=== PATIENT | male | born 1930 | race Caucasian/White ===

== ENCOUNTER 2018-09-12 15:13 | Emergency (ER) | payer OTHER, BC ==
[2018-09-12 16:26] LABS: Albumin 3.7 g/dL (3.4-5.0); Bilirubin Direct 0.2 mg/dL (0-0.2); Bilirubin Total 0.9 mg/dL (0.2-1.0); Potassium 4.7 mmol/L (3.5-5.1); Protein, Total 6.9 g/dL (6.4-8.2)
[2018-09-12 16:28] LABS: Absolute Lymphocytes (CBC) 1.4 K/uL (0.7-4.9); Absolute Monocytes 0.8 K/uL (0.1-1.3); Basophils % 0.2 % (0-1.3); Eosinophils % 0.4 % (0-4.4); Hematocrit 39.3 % (39.6-49.0); MPV 9.1 fL (7.6-11.3); Monocytes % 9.2 % (3.3-12.3); RBC Red Blood Cell Count 4.21 M/uL (4.33-5.43)
[2018-09-12 16:47] LABS: Urine Blood 3+ (NEG); Urine Glucose NEGATIVE (NEG); Urine Protein 3+ (NEG); Urine Specific Gravity 1.025 (1.005-1.030); Urine pH 5.5 (5.0-7.0)
[2018-09-12 16:54] LABS: Urine Bacteria 20-50 /HPF (NONE SEEN); Urine Culture Reflex Order REFLEXED; Urine RBC LOADED /HPF (NONE SEEN)
--- NOTE | 2018-09-12 17:20 | RAD REPORT ---
EXAM DESCRIPTION: CTAbdomen Pelvis W Contrast - 09/12/2018 5:08 pm CLINICAL HISTORY: Abdominal pain. iv only;Hematuria COMPARISON: Abdomen Pelvis W Contrast dated 03/22/2017; CT ABD PELVIS W CONTRAST dated 10/09/2015 TECHNIQUE: Biphasic CT imaging of the abdomen and pelvis was performed with 100 ml non-ionic IV cont rast. All CT scans are performed using dose optimization technique as appropriate and may include automated exposure control or mA/KV adjustment according to patient size. FINDINGS: Emphysematous changes are present in both lung bases. 5.5 cm right-sided pericardial cyst noted. No aggressive liver lesion is seen. 14 mm cyst is present in the posterior inferior right lobe of the liver. The spleen appears absent. A splenule is present left upper quadrant. Both adrenal glands and pancreas appear unremarkable. Punctate bilateral nephrolithiasis is seen without hydronephrosis. Postsurgical changes are present in the inferior pelvis. 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 This soft tissue lesion measures approximat josie 2.4 cm. Left lower quadrant ostomy is present. No bowel obstruction or free air. No evidence of significant lymphadenopathy. 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 Prominent lumbosacral degenerative changes. IMPRESSION: Bilateral nephrolithiasis without hydronephrosis. No acute intra-abdominopelvic finding.
--- NOTE | 2018-09-12 17:50 | ER ---
Nurse's Notes [facility] Name: Cammie Mcclellan Age: 88 yrs Sex: Male : 1930 Arrival Date: 09/12/2018 Time: 15:16 Bed 26 Private MD: Diagnosis: Urinary tract infection, site not specified;Hematuria Presentation: 09/12 15:17 Presenting complaint: Patient states: i had blood in my urine and noticed it today, hx hj of prostate and colon cancer, denies fever and chills; denies nausea and vomiting; not been getting any current treatment for cancer;. Transition of care: patient was not received from another setting of care. Onset of symptoms was September 12, 2018. Risk Assessment: Do you want to hurt yourself or someone else? Patient reports no desire to harm self or others. Initial Sepsis Screen: Does the patient meet any 2 criteria? No. Patient's initial sepsis screen is negative. Does the patient have a suspected source of infection? No. Patient's initial sepsis screen is negative. Care prior to arrival: None. 15:17 Method Of Arrival: Ambulatory 15:17 Acuity: KYREE 3 hj Triage Assessment: 15:23 General: Appears in no apparent distress. uncomfortable, Behavior is calm, cooperative, hj appropriate for age. Pain:. Historical: - Allergies: 15:22 Codeine; hj 15:22 PENICILLINS; hj 15:22 Vicodin; hj - Home Meds: 15:22 ferrous sulfate 324 mg (65 mg iron) Oral TbEC [Active]; aspirin 81 mg Oral chew 1 tab hj once daily [Active]; Singulair 10 mg Oral tab 1 tab once daily [Active]; Zyrtec 10 mg Oral tab 1 tab once daily [Active]; respidone [Active]; Namenda 5 mg oral tab 2 tabs 2 times per day [Active]; - PMHx: 15:22 Currently on Chemotherapy; Hypertension; mesothelioma; Prostate Cancer; hj - PSHx: 15:22 prostate cancer sx; colon surgery; hj - Immunization history:: Adult Immunizations up to date. - Social history:: Smoking status: Patient/guardian denies using tobacco, Patient/guardian denies using alcohol. - Ebola Screening: : Patient negative for fever greater than or equal to 101.5 degrees Fahrenheit, and additional compatible Ebola Virus Disease symptoms Patient denies exposure to infectious person Patient denies travel to an Ebola-affected area in the 21 days before illness onset. Screenin:22 Abuse screen: Denies threats or abuse. Denies injuries from another. Nutritional hj screening: No deficits noted. Tuberculosis screening: No symptoms or risk factors identified. Fall Risk None identified. Assessment: 17:00 General: Appears in no apparent distress. comfortable, well groomed, well developed, tl3 well nourished, Behavior is calm, cooperative, appropriate for age. Pain: Denies pain. Neuro: Level of Consciousness is awake, alert, obeys commands, Oriented to person, place, time, situation, Appropriate for age. Cardiovascular: Patient's skin is warm and dry. Respiratory: Airway is patent Respiratory effort is even, unlabored, Respiratory pattern is regular, symmetrical. GI: No signs and/or symptoms were reported involving the gastrointestinal system. : straight cath. EENT: No signs and/or symptoms were reported regarding the EENT system. Derm: No signs and/or symptoms reported regarding the dermatologic system. Musculoskeletal: No deficits noted. Vital Signs: 15:23 BP 135 / 81; Pulse 86; Resp 18; Temp 99.4(O); Pulse Ox 99% on R/A; Weight 77.11 kg; Height 5 ft. 10 in. (177.80 cm); 17:00 BP 192 / 97; Pulse 88; Resp 16; Pulse Ox 100% on R/A; tl3 18:21 BP 199 / 97; Pulse 84; Resp 18; Pulse Ox 100% on R/A; tl3 15:23 Body Mass Index 24.39 (77.11 kg, 177.80 cm) ED Course: 15:16 Patient arrived in ED. mr 15:20 Triage completed. 15:23 Arm band placed on left wrist. 15:23 Patient has correct armband on for positive identification. Bed in low position. Call light in reach. Side rails up X 1. Adult w/ patient. 15:39 Villa Rodas PA is PHCP. jr8 15:39 Nilay Caputo MD is Attending Physician. jr8 15:55 Missed attempt(s): 20 gauge in left forearm. Bleeding controlled, band aid applied, jp3 catheter tip intact. 16:00 Initial lab(s) drawn, by me, sent to lab. jp3 16:00 Inserted saline lock: 22 gauge in left antecubital area, using aseptic technique. Blood jp3 collected. 16:07 Basic Metabolic Panel Sent. jp3 16:07 CBC with Diff Sent. jp3 16:07 Creatinine for Radiology Sent. jp3 16:07 Hepatic Function Sent. jp3 16:07 Urine Microscopic Only Sent. jp3 16:07 Urine Microscopic Only Sent. jp3 16:10 Urine collected: straight cath specimen, tea colored, blood tinged, Amount Returned: jp3 100mL. 16:50 Thelma Smith, RN is Primary Nurse. tl3 16:[address] via stretcher. tl3 17:00 No provider procedures requiring assistance completed. IV discontinued, intact, tl3 bleeding controlled, No redness/swelling at site. Pressure dressing applied. 17:08 CT Abd/Pelvis - W/Contrast In Process Unspecified. EDMS 17:08 CT completed. Patient tolerated procedure well. Patient moved back from [place]. fl 17:16 Urine Culture Sent. tl3 17:49 Erica Eagle MD is Referral Physician. jr8 Administered Medications: 18:04 Drug: Rocephin 1 grams {Note: IVP over 5 min.} Route: IV; Rate: calculated rate; Site: tl3 left antecubital; 18:04 Follow up: IV Status: Completed infusion; IV Intake: 20ml tl3 Intake: 18:04 IV: 20ml; Total: 20ml. tl3 Outcome: 17:00 Discharged to home via wheelchair. tl3 17:00 Condition: stable 17:00 Discharge instructions given to patient, family, Instructed on discharge instructions, follow up and referral plans. medication usage, Demonstrated understanding of instructions, follow-up care, medications, Prescriptions given X 1. 17:50 Discharge ordered by . jr8 18:20 Patient left the ED. tl3 Signatures: Dispatcher [employer] EDWV Sima Vazquez Villa Collins PA PA jr8 Justin Saleh RN RN hj Jordan, Nathan nj Lowrey, Tammy, RN RN tl3 Eren Luong jp3 Corrections: (The following items were deleted from the chart) 15:27 15:23 Pulse 86bpm; Resp 18bpm; Pulse Ox 99% RA; Temp 99.4F Oral; 77.11 kg; Height 5 ft. hj 10 in.; BMI: 24.3; hj 16:06 16:05 Inserted saline lock: 22 gauge in left antecubital area, using aseptic technique. jp3 Blood collected. jp3
--- NOTE | 2018-09-12 17:51 | EDPHYS ---
Physician Documentation [facility] Name: Cammie Mcclellan Age: 88 yrs Sex: Male : 1930 Arrival Date: 09/12/2018 Time: 15:16 Bed 26 Private MD: ED Physician Nilay Caputo HPI: 09/12 16:16 This 88 yrs old Male presents to ER via Ambulatory with complaints of Urinary jr8 Problem. 16:16 The patient presents with Hematuria . Onset: The symptoms/episode began/occurred jr8 acutely, today. Modifying factors: The symptoms are alleviated by nothing, the symptoms are aggravated by nothing. Associated signs and symptoms: The patient has no apparent associated signs or symptoms. Severity of symptoms: At their worst the symptoms were moderate, in the emergency department the symptoms have improved, mildly. The patient has not experienced similar symptoms in the past. The patient has not recently seen a physician. 16:16 Radical prostatectomy in the 80s from cancer . jr8 Historical: - Allergies: 15:22 Codeine; hj 15:22 PENICILLINS; hj 15:22 Vicodin; hj - Home Meds: 15:22 ferrous sulfate 324 mg (65 mg iron) Oral TbEC [Active]; aspirin 81 mg Oral chew 1 tab hj once daily [Active]; Singulair 10 mg Oral tab 1 tab once daily [Active]; Zyrtec 10 mg Oral tab 1 tab once daily [Active]; respidone [Active]; Namenda 5 mg oral tab 2 tabs 2 times per day [Active]; - PMHx: 15:22 Currently on Chemotherapy; Hypertension; mesothelioma; Prostate Cancer; hj - PSHx: 15:22 prostate cancer sx; colon surgery; hj - Immunization history:: Adult Immunizations up to date. - Social history:: Smoking status: Patient/guardian denies using tobacco, Patient/guardian denies using alcohol. - Ebola Screening: : Patient negative for fever greater than or equal to 101.5 degrees Fahrenheit, and additional compatible Ebola Virus Disease symptoms Patient denies exposure to infectious person Patient denies travel to an Ebola-affected area in the 21 days before illness onset. ROS: 16:16 Eyes: Negative for injury, pain, redness, and discharge, ENT: Negative for injury, jr8 pain, and discharge, Neck: Negative for injury, pain, and swelling, Cardiovascular: Negative for chest pain, palpitations, and edema, Respiratory: Negative for shortness of breath, cough, wheezing, and pleuritic chest pain, Abdomen/GI: Negative for abdominal pain, nausea, vomiting, diarrhea, and constipation, Back: Negative for injury and pain, MS/Extremity: Negative for injury and deformity, Skin: Negative for injury, rash, and discoloration, Neuro: Negative for headache, weakness, numbness, tingling, and seizure. 16:16 : Positive for hematuria, Negative for urinary frequency, small amounts, pelvic pain, flank pain, burning with urination, difficulty urinating, penile discharge, penile pain, testicular pain Exam: 16:16 Eyes: Pupils equal round and reactive to light, extra-ocular motions intact. Lids and jr8 lashes normal. Conjunctiva and sclera are non-icteric and not injected. Cornea within normal limits. Periorbital areas with no swelling, redness, or edema. ENT: Nares patent. No nasal discharge, no septal abnormalities noted. Tympanic membranes are normal and external auditory canals are clear. Oropharynx with no redness, swelling, or masses, exudates, or evidence of obstruction, uvula midline. Mucous membranes moist. Neck: Trachea midline, no thyromegaly or masses palpated, and no cervical lymphadenopathy. Supple, full range of motion without nuchal rigidity, or vertebral point tenderness. No Meningismus. Cardiovascular: Regular rate and rhythm with a normal S1 and S2. No gallops, murmurs, or rubs. Normal PMI, no JVD. No pulse deficits. Respiratory: Lungs have equal breath sounds bilaterally, clear to auscultation and percussion. No rales, rhonchi or wheezes noted. No increased work of breathing, no retractions or nasal flaring. Abdomen/GI: Soft, non-tender, with normal bowel sounds. No distension or tympany. No guarding or rebound. No evidence of tenderness throughout. Left sided colostomy bag and stoma noted and without acute or concerning findings Back: No spinal tenderness. No costovertebral tenderness. Full range of motion. Skin: Warm, dry with normal turgor. Normal color with no rashes, no lesions, and no evidence of cellulitis. MS/ Extremity: Pulses equal, no cyanosis. Neurovascular intact. Full, normal range of motion. Neuro: Awake and alert, GCS 15, oriented to person, place, time, and situation. Cranial nerves II-XII grossly intact. Motor strength 5/5 in all extremities. Sensory grossly intact. Cerebellar exam normal. Normal gait. Vital Signs: 15:23 BP 135 / 81; Pulse 86; Resp 18; Temp 99.4(O); Pulse Ox 99% on R/A; Weight 77.11 kg; hj Height 5 ft. 10 in. (177.80 cm); 17:00 BP 192 / 97; Pulse 88; Resp 16; Pulse Ox 100% on R/A; tl3 18:21 BP 199 / 97; Pulse 84; Resp 18; Pulse Ox 100% on R/A; tl3 15:23 Body Mass Index 24.39 (77.11 kg, 177.80 cm) hj MDM: 15:40 Patient medically screened. jr8 17:48 Data reviewed: vital signs, nurses notes, lab test result(s), radiologic studies, CT 8 scan. Data interpreted: Pulse oximetry: on room air is 99 %. Interpretation: normal. Counseling: I had a detailed discussion with the patient and/or guardian regarding: the historical points, exam findings, and any diagnostic results supporting the discharge/admit diagnosis, lab results, radiology results, the need for outpatient follow up, a urologist, to return to the emergency department if symptoms worsen or persist or if there are any questions or concerns that arise at home. ED course: Bacteria in urine present. Will treat with abx. Recommended him seeing Urology regardless for possible cystoscopy. Family good with this and will f/u with one after the weekend. If worse would come back . 09/12 15:26 Order name: Urine Microscopic Only 09/12 15:26 Order name: Urine Microscopic Only; Complete Time: 17:02 [facility] 09/12 15:40 Order name: Basic Metabolic Panel; Complete Time: 16:27 [facility] 09/12 15:40 Order name: CBC with Diff; Complete Time: 16:32 [facility] 09/12 15:40 Order name: Creatinine for Radiology; Complete Time: 16:27 [facility] 09/12 15:40 Order name: Hepatic Function; Complete Time: 16:27 [facility] 09/12 15:26 Order name: Urine Dipstick-Ancillary (obtain specimen); Complete Time: 16:07 09/12 15:40 Order name: IV Saline Lock; Complete Time: 16:06 [facility] 09/12 15:40 Order name: Labs collected and sent; Complete Time: 16:07 [facility] 09/12 16:03 Order name: Straight Cath - Urine; Complete Time: 16:32 [facility] 09/12 16:32 Order name: CT Abd/Pelvis - W/Contrast; Complete Time: 17:37 [facility] 09/12 16:33 Order name: Urine Dipstick--Ancillary (enter results); Complete Time: 17:02 09/12 16:56 Order name: Urine Culture EDMS Administered Medications: 18:04 Drug: Rocephin 1 grams {Note: IVP over 5 min.} Route: IV; Rate: calculated rate; Site: tl3 left antecubital; 18:04 Follow up: IV Status: Completed infusion; IV Intake: 20ml tl3 Disposition: 09/12/18 17:50 Discharged to Home. Impression: Urinary tract infection, site not specified, Hematuria. - Condition is Stable. - Discharge Instructions: Hematuria, Adult, Urinary Tract Infection, Adult. - Prescriptions for Cipro 500 mg Oral Tablet - take 1 tablet by ORAL route every 12 hours for 7 days; 14 tablet. - Medication Reconciliation Form, Thank You Letter, Antibiotic Education, Prescription Opioid Use form. - Follow up: Erica Eagle MD; When: 2 - 3 days; Reason: Recheck today's complaints, Continuance of care, Re-evaluation by your physician. - Problem is new. - Symptoms have improved. Signatures: Dispatcher [employer] EDIN Villa Rodas PA PA jr8 Justin Saleh RN RN Thelma Smith RN RN tl3 Corrections: (The following items were deleted from the chart) 18:20 17:50 09/12/2018 17:50 Discharged to Home. Impression: Urinary tract infection, site tl3 not specified; Hematuria. Condition is Stable. Forms are Medication Reconciliation Form, Thank You Letter, Antibiotic Education, Prescription Opioid Use. Follow up: Erica Eagle; When: 2 - 3 days; Reason: Recheck today's complaints, Continuance of care, Re-evaluation by your physician. Problem is new. Symptoms have improved. jr8
[2018-09-12] MEDS ORDERED: CEFTRIAXONE/SWI 1gm 1 GM/10 ML SYR ONE (18:06)
[2018-09-12 18:25] VITALS: TEMP 99.4
[2018-09-12 18:27] VITALS: BP 192/97; O2SAT 100
== END 2018-09-12 18:20 | disposition home or self-care (01) ==
LOC: ER 15:13
DX: N39.0 Urinary tract infection, site not specified (principal); I10 Essential (primary) hypertension; C45.9 Mesothelioma, unspecified; Z79.82 Long term (current) use of aspirin; Z88.0 Allergy status to penicillin; Z88.5 Allergy status to narcotic agent; Z85.46 Personal history of malignant neoplasm of prostate
CPT/HCPCS: 87088; 85025; 80048; 36415; 80076; 74177; 96374; 99284; Q9967; J0696; 81003; 81015; 87086

== ENCOUNTER 2018-11-29 03:12 | Emergency (ER) | payer OTHER, BC ==
[2018-11-29 04:26] LABS: Absolute Lymphocytes (CBC) 1.2 K/uL (0.7-4.9); Absolute Monocytes 0.9 K/uL (0.1-1.3); Absolute Neutrophil 10.7 K/uL (1.8-8.0); Basophils % 0.4 % (0-1.3); Eosinophils % 0.2 % (0-4.4); Hematocrit 39.2 % (39.6-49.0); Lymphocytes % 9.5 % (15.3-44.8); MPV 9.2 fL (7.6-11.3); RBC Red Blood Cell Count 4.23 M/uL (4.33-5.43)
[2018-11-29] MEDS ORDERED: HYDRALAZINE HCL 20 MG/ML VIAL ONE (04:34)
[2018-11-29] MEDS ORDERED: ACETAMINOPHEN 500 MG TAB ONE (04:35)
[2018-11-29 04:46] LABS: Albumin 3.8 g/dL (3.4-5.0); Bilirubin Total 0.6 mg/dL (0.2-1.0); Potassium 4.7 mmol/L (3.5-5.1); Protein, Total 7.3 g/dL (6.4-8.2)
[2018-11-29 05:07] LABS: Urine Amorphous Sediment 1+ /HPF (NONE SEEN); Urine Bacteria <20 /HPF (NONE SEEN); Urine Culture Reflex Order NOT NEEDED; Urine RBC TNTC /HPF (NONE SEEN)
--- NOTE | 2018-11-29 05:27 | ER ---
Nurse's Notes [facility] Name: Cammie Mcclellan Age: 88 yrs Sex: Male : 1930 Arrival Date: 11/29/2018 Time: 03:15 Bed 5 Private MD: Diagnosis: URINARY RETENTION Presentation: 11/29 03:34 Presenting complaint: pt c/o bladder and kidney pain starting at 0300. pt is ak1 incontinent but states he feels the need to urinate with no urine coming out. pt was seen "a few months ago" with same s/s. Transition of care: patient was not received from another setting of care. Onset of symptoms was November 29, 2018. Risk Assessment: Do you want to hurt yourself or someone else? Patient reports no desire to harm self or others. Care prior to arrival: None. 03:34 Method Of Arrival: Wheelchair ak1 03:34 Acuity: KYREE 3 ak1 04:14 Initial Sepsis Screen: Does the patient meet any 2 criteria? No. Patient's initial cc3 sepsis screen is negative. Does the patient have a suspected source of infection? No. Patient's initial sepsis screen is negative. Triage Assessment: 03:38 General: Appears in no apparent distress. Behavior is calm, cooperative. ak1 04:14 Pain: Complains of pain in lower abdomen and back. cc3 Historical: - Allergies: 03:38 Codeine; ak1 03:38 PENICILLINS; ak1 03:38 Vicodin; ak1 - Home Meds: 03:38 Namenda 5 mg Oral tab 2 tabs 2 times per day [Active]; aspirin 81 mg Oral chew 1 tab ak1 once daily [Active]; ferrous sulfate 324 mg (65 mg iron) Oral TbEC [Active]; respidone [Active]; Singulair 10 mg Oral tab 1 tab once daily [Active]; Zyrtec 10 mg Oral tab 1 tab once daily [Active]; - PMHx: 03:38 Prostate Cancer; mesothelioma; Hypertension; Currently on Chemotherapy; ak1 - PSHx: 03:38 colon surgery; prostate cancer sx; Colostomy; ak1 - Immunization history:: Adult Immunizations unknown. - Social history:: Smoking status: Patient/guardian denies using tobacco. - Ebola Screening: : No symptoms or risks identified at this time. Screenin:39 Abuse screen: Denies threats or abuse. Denies injuries from another. Nutritional ak1 screening: No deficits noted. Tuberculosis screening: No symptoms or risk factors identified. Fall Risk None identified. Assessment: 04:14 Reassessment: Patient appears in no apparent distress at this time. Patient and/or cc3 family updated on plan of care and expected duration. Pain level reassessed. Patient is alert, oriented x 3, equal unlabored respirations, skin warm/dry/pink. 05:50 Reassessment: Patient appears in no apparent distress at this time. Patient and/or cc3 family updated on plan of care and expected duration. Pain level reassessed. Patient is alert, oriented x 3, equal unlabored respirations, skin warm/dry/pink. Dr. Medina discharged the patient home, no prescription given. IV cannula removed and patient left ER vitally stable by wheelchair escorted by his daughter. Patient denies pain at this time. Patient states feeling better. Patient states symptoms have improved. Vital Signs: 03:33 BP 200 / 124; Pulse 95; Resp 18; Temp 97.6(TE); Pulse Ox 98% on R/A; Weight 86.18 kg ak1 (R); Height 6 ft. (182.88 cm) (R); Pain 6/10; 04:30 BP 182 / 94; Pulse 88; Resp 19 S; Pulse Ox 97% on R/A; cc3 05:00 BP 146 / 89; Pulse 86; Resp 18 S; Pulse Ox 98% on R/A; cc3 05:30 BP 146 / 91; Pulse 88; Resp 18 S; Pulse Ox 98% on R/A; cc3 03:33 Body Mass Index 25.77 (86.18 kg, 182.88 cm) ak1 ED Course: 03:15 Patient arrived in ED. mr 03:33 Jose De Jesus Medina MD is Attending Physician. tw4 03:33 Arm band placed on Patient placed in an exam room, on a stretcher, on pulse oximetry, ak1 Patient notified of wait time. 03:36 Triage completed. ak1 03:39 Patient has correct armband on for positive identification. Placed in gown. Bed in low ak1 position. Side rails up X2. Adult w/ patient. Pulse ox on. NIBP on. 03:40 Inserted saline lock: 20 gauge in right antecubital area, using aseptic technique. cc3 Blood collected. 04:14 Gretel Rhodes is Primary Nurse. cc3 04:50 Straight cath inserted, using sterile technique, 16 Fr. Specimen obtained. Returned ak1 sandra urine. Patient tolerated well. 05:50 No provider procedures requiring assistance completed. IV discontinued, intact, cc3 bleeding controlled, No redness/swelling at site. Pressure dressing applied. Administered Medications: 04:35 Drug: Tylenol 1000 mg Route: PO; cc3 05:30 Follow up: Response: No adverse reaction; Pain is decreased cc3 04:51 CANCELLED (Physician Discretion): hydrALAZINE 20 mg IV at bolus once cc3 Output: 04:51 Urine: 600ml (Straight Cath); Total: 600ml. ak1 Outcome: 05:26 Discharge ordered by . tw4 05:50 Discharged to home via wheelchair, with family. cc3 05:50 Condition: stable 05:50 Discharge instructions given to patient, family, Instructed on discharge instructions, follow up and referral plans. Demonstrated understanding of instructions, follow-up care. 05:51 Patient left the ED. cc3 Signatures: Sima Vazquez JoeSandra, RN RN ak1 Jose De Jesus Medina MD MD tw4 Gretel Rhodes cc3
--- NOTE | 2018-11-29 05:27 | EDPHYS ---
Physician Documentation [facility] Name: Cammie Mcclellan Age: 88 yrs Sex: Male : 1930 Arrival Date: 11/29/2018 Time: 03:15 Bed 5 Private MD: ED Physician Jose De Jesus Medina HPI: 11/29 05:42 This 88 yrs old Male presents to ER via Wheelchair with complaints of Urinary tw4 Problem. 05:42 The patient presents with urinary symptoms, retention, unable to void. Onset: The tw4 symptoms/episode began/occurred today. Modifying factors: The symptoms are alleviated by nothing, the symptoms are aggravated by nothing. Associated signs and symptoms: The patient has no apparent associated signs or symptoms. Severity of symptoms: At their worst the symptoms were moderate, in the emergency department the symptoms are unchanged. The patient has not experienced similar symptoms in the past. Historical: - Allergies: 03:38 Codeine; ak1 03:38 PENICILLINS; ak1 03:38 Vicodin; ak1 - Home Meds: 03:38 Namenda 5 mg Oral tab 2 tabs 2 times per day [Active]; aspirin 81 mg Oral chew 1 tab ak1 once daily [Active]; ferrous sulfate 324 mg (65 mg iron) Oral TbEC [Active]; respidone [Active]; Singulair 10 mg Oral tab 1 tab once daily [Active]; Zyrtec 10 mg Oral tab 1 tab once daily [Active]; - PMHx: 03:38 Prostate Cancer; mesothelioma; Hypertension; Currently on Chemotherapy; ak1 - PSHx: 03:38 colon surgery; prostate cancer sx; Colostomy; ak1 - Immunization history:: Adult Immunizations unknown. - Social history:: Smoking status: Patient/guardian denies using tobacco. - Ebola Screening: : No symptoms or risks identified at this time. ROS: 05:42 Constitutional: Negative for fever, chills, and weight loss, Eyes: Negative for injury, tw4 pain, redness, and discharge, Cardiovascular: Negative for chest pain, palpitations, and edema, Respiratory: Negative for shortness of breath, cough, wheezing, and pleuritic chest pain, Abdomen/GI: Negative for abdominal pain, nausea, vomiting, diarrhea, and constipation, Back: Negative for injury and pain. 05:42 : Positive for pelvic pain, urinary frequency, small amounts, difficulty urinating. Exam: 05:42 Constitutional: This is a well developed, well nourished patient who is awake, alert, tw4 and in no acute distress. Head/Face: Normocephalic, atraumatic. Chest/axilla: Normal chest wall appearance and motion. Nontender with no deformity. No lesions are appreciated. Cardiovascular: Regular rate and rhythm with a normal S1 and S2. No gallops, murmurs, or rubs. Normal PMI, no JVD. No pulse deficits. Respiratory: Lungs have equal breath sounds bilaterally, clear to auscultation and percussion. No rales, rhonchi or wheezes noted. No increased work of breathing, no retractions or nasal flaring. 05:42 Abdomen/GI: Inspection: abdomen appears normal, Bowel sounds: normal, Palpation: mild abdominal tenderness, in the suprapubic area. Vital Signs: 03:33 BP 200 / 124; Pulse 95; Resp 18; Temp 97.6(TE); Pulse Ox 98% on R/A; Weight 86.18 kg ak1 (R); Height 6 ft. (182.88 cm) (R); Pain 6/10; 04:30 BP 182 / 94; Pulse 88; Resp 19 S; Pulse Ox 97% on R/A; cc3 05:00 BP 146 / 89; Pulse 86; Resp 18 S; Pulse Ox 98% on R/A; cc3 05:30 BP 146 / 91; Pulse 88; Resp 18 S; Pulse Ox 98% on R/A; cc3 03:33 Body Mass Index 25.77 (86.18 kg, 182.88 cm) ak1 MDM: 03:33 Patient medically screened. tw4 05:42 Differential diagnosis: nonspecific abdominal pain, appendicitis, UTI. Data reviewed: tw4 vital signs, nurses notes. Counseling: I had a detailed discussion with the patient and/or guardian regarding: the historical points, exam findings, and any diagnostic results supporting the discharge/admit diagnosis. 05:42 Data interpreted: Pulse oximetry: Interpretation: normal. ED course: Pt's pain improved tw4 after Huerta catheter inserted with 600 cc of dark urine. 11/29 03:56 Order name: Urine Microscopic Only; Complete Time: 05:25 tw4 11/29 03:57 Order name: CMP [facility] 11/29 03:56 Order name: Urine Dipstick-Ancillary (obtain specimen); Complete Time: 04:50 4 11/29 03:57 Order name: CBC with Diff tw4 Administered Medications: 04:35 Drug: Tylenol 1000 mg Route: PO; cc3 05:30 Follow up: Response: No adverse reaction; Pain is decreased cc3 04:51 CANCELLED (Physician Discretion): hydrALAZINE 20 mg IV at bolus once cc3 Disposition: 11/29/18 05:26 Discharged to Home. Impression: URINARY RETENTION. - Condition is Stable. - Discharge Instructions: Acute Urinary Retention, Male, [id number]. - Medication Reconciliation Form, Thank You Letter, Antibiotic Education, Prescription Opioid Use form. - Follow up: Private Physician; When: Upon discharge from the Emergency Department; Reason: If symptoms return, Recheck today's complaints, Continuance of care. - Problem is new. - Symptoms have improved. Signatures: Dispatcher [employer] EDRadha Sanchez RN RN ak1 Jose De Jesus Medina MD MD tw4 Gretel Rhodes cc3 Corrections: (The following items were deleted from the chart) 04:51 03:56 hydrALAZINE 20 mg IV at bolus once ordered. 4 cc3 04:51 04:51 hydrALAZINE 20 mg IV at bolus once ordered. cc3 cc3 05:51 05:26 11/29/2018 05:26 Discharged to Home. Impression: URINARY RETENTION. Condition is cc3 Stable. Forms are Medication Reconciliation Form, Thank You Letter, Antibiotic Education, Prescription Opioid Use. Follow up: Private Physician; When: Upon discharge from the Emergency Department; Reason: If symptoms return, Recheck today's complaints, Continuance of care. Problem is new. Symptoms have improved. 4
[2018-11-29 06:31] VITALS: TEMP 97.6
[2018-11-29 06:33] VITALS: O2SAT 98
[2018-11-29 06:34] VITALS: BP 146/91
== END 2018-11-29 05:51 | disposition home or self-care (01) ==
LOC: ER 03:12
DX: R33.9 Retention of urine, unspecified (principal); C63.7 Malignant neoplasm of other specified male genital organs; C45.0 Mesothelioma of pleura; I10 Essential (primary) hypertension; Z79.82 Long term (current) use of aspirin; Z88.0 Allergy status to penicillin; Z88.5 Allergy status to narcotic agent
CPT/HCPCS: 36415; 51702; 80053; 81015; 85025; 99284; J0360

== ENCOUNTER 2018-11-30 20:32 | Emergency (ER) | payer OTHER, BC ==
[2018-11-30 23:04] LABS: Urine Amorphous Sediment 4+ /HPF (NONE SEEN); Urine Bacteria <20 /HPF (NONE SEEN); Urine Culture Reflex Order NOT NEEDED; Urine RBC 20-50 /HPF (NONE SEEN)
--- NOTE | 2018-11-30 23:55 | ER ---
Nurse's Notes [facility] Name: Cammie Mcclellan Age: 88 yrs Sex: Male : 1930 Arrival Date: 11/30/2018 Time: 20:34 Bed 17 Private MD: Diagnosis: Dysuria;Hematuria Presentation: 11/30 20:46 Presenting complaint: Patient states: abd pain, is feeling urgency but normally doesn't iw feel urgency, was seen here Saturday morning, had bladder drained, pt is passing urine today. Transition of care: patient was not received from another setting of care. Onset of symptoms was November 30, 2018. Risk Assessment: Do you want to hurt yourself or someone else? Patient reports no desire to harm self or others. Initial Sepsis Screen: Does the patient meet any 2 criteria? No. Patient's initial sepsis screen is negative. Does the patient have a suspected source of infection? No. Patient's initial sepsis screen is negative. Care prior to arrival: None. 20:46 Method Of Arrival: Wheelchair iw 20:46 Acuity: [id number] 3 iw Historical: - Allergies: 20:50 Codeine; iw 20:50 PENICILLINS; iw 20:50 Vicodin; iw - Home Meds: 20:50 aspirin 81 mg Oral chew 1 tab once daily [Active]; ferrous sulfate 324 mg (65 mg iron) iw Oral TbEC [Active]; Namenda 5 mg Oral tab 2 tabs 2 times per day [Active]; risperidone oral oral [Active]; Zyrtec 10 mg Oral tab 1 tab once daily [Active]; Singulair 10 mg Oral tab 1 tab once daily [Active]; - PMHx: 20:50 Currently on Chemotherapy; Hypertension; mesothelioma; Prostate Cancer; iw - PSHx: 20:50 colon surgery; prostate cancer sx; Colostomy; iw - Immunization history:: Adult Immunizations up to date. - Ebola Screening: : Patient negative for fever greater than or equal to 101.5 degrees Fahrenheit, and additional compatible Ebola Virus Disease symptoms Patient denies exposure to infectious person Patient denies travel to an Ebola-affected area in the 21 days before illness onset No symptoms or risks identified at this time. - Social history:: Smoking status: Patient/guardian denies using tobacco. Screenin:00 Abuse screen: Denies threats or abuse. Denies injuries from another. Nutritional ca1 screening: No deficits noted. Tuberculosis screening: No symptoms or risk factors identified. Fall Risk Secondary diagnosis (15 points) dementia. Assessment: 21:00 General: Appears in no apparent distress. comfortable, Behavior is calm, cooperative, ca1 appropriate for age. Pain: Complains of pain in suprapubic area Pain does not radiate. Pain currently is 2 out of 10 on a pain scale. at worst was 6 out of 10 on a pain scale. Pain began 1 day ago. Is intermittent. Neuro: Level of Consciousness is awake, alert, obeys commands, Oriented to person, place, time, situation. Cardiovascular: Heart tones S1 S2 present Capillary refill < 3 seconds Patient's skin is warm and dry. Respiratory: Airway is patent Respiratory effort is even, unlabored, Respiratory pattern is regular, symmetrical, Breath sounds are clear bilaterally. GI: Abdomen is flat, non-distended, Colostomy site is clean and dry. Ostomy appliance is intact. Bowel sounds present X 4 quads. Abd is soft and non tender X 4 quads. : Parent/caregiver report the patient having burning with urination since Saturday morning. urinary frequency urgency. EENT: No deficits noted. No signs and/or symptoms were reported regarding the EENT system. Derm: Skin is intact, is fragile. Musculoskeletal: Circulation, motion, and sensation intact. Capillary refill < 3 seconds. 21:40 Reassessment: Scanned bladder. Urine at 57ml in bladder. Notified Dr. Medina. VO to ca1 change order of Huerta to Straight Cath. 22:00 Reassessment: Patient appears in no apparent distress at this time. Patient and/or ca1 family updated on plan of care and expected duration. Pain level reassessed. Patient is alert, oriented x 3, equal unlabored respirations, skin warm/dry/pink. 23:00 Reassessment: Patient appears in no apparent distress at this time. Patient is alert, ca1 oriented x 3, equal unlabored respirations, skin warm/dry/pink. Family at bedside. Vital Signs: 20:48 BP 146 / 88; Pulse 86; Resp 16; Temp 97.8; Pulse Ox 98% ; Weight 65.77 kg; Height 5 ft. iw 6 in. (167.64 cm); Pain 0/10; 21:25 BP 156 / 89; Pulse 87; Resp 17 S; Temp 98; Pulse Ox 99% on R/A; ca1 22:00 BP 144 / 89; Pulse 80; Resp 18 S; Pulse Ox 99% on R/A; ca1 22:32 BP 168 / 87; Pulse 85; Resp 17 S; Temp 98.(O); Pulse Ox 100% on R/A; ca1 22:45 BP 146 / 81; Pulse 85; Resp 17 S; Pulse Ox 98% on R/A; ca1 23:15 BP 164 / 104; Pulse 82; Resp 18 S; Pulse Ox 98% on R/A; ca1 23:40 BP 148 / 91; Pulse 81; Resp 18; Pulse Ox 97% on R/A; lp1 20:48 Body Mass Index 23.40 (65.77 kg, 167.64 cm) iw ED Course: 20:34 Patient arrived in ED. es 20:48 Triage completed. iw 20:48 Arm band placed on. iw 20:55 Bhavna Britt, RN is Primary Nurse. ca1 21:00 Patient has correct armband on for positive identification. Placed in gown. Bed in low ca1 position. Call light in reach. Side rails up X2. Pulse ox on. NIBP on. Warm blanket given. 21:00 No provider procedures requiring assistance completed. ca1 21:12 Jose De Jesus Medina MD is Attending Physician. tw4 22:41 CT Stone Protocol In Process Unspecified. EDMS 23:46 Straight cath inserted, using sterile technique, 16 Fr. Specimen obtained. Returned ca1 clear yellow urine. Patient tolerated well. 23:59 Patient did not have IV access during this emergency room visit. lp1 Administered Medications: 23:54 Drug: Macrobid 100 mg Route: PO; lp1 12/01 00:01 Follow up: Response: Medication administered at discharge. lp1 Output: 11/30 22:32 Urine: 55ml (Straight Cath); Total: 55ml. ca1 Outcome: 23:54 Discharge ordered by . tw4 12/01 00:00 Discharged to home via wheelchair, with family. lp1 Condition: good Discharge instructions given to patient, family, Instructed on discharge instructions, follow up and referral plans. medication usage, Demonstrated understanding of instructions, follow-up care, medications, Prescriptions given X 1. 00:01 Patient left the ED. lp1 Signatures: Dispatcher [employer] EDMS [place], Megan es Florentino, Cindy, RN RN iw Neelam Sandoval RN RN lp1 Jose De Jesus Medina MD MD tw4 Bhavna Britt RN RN ca1 Corrections: (The following items were deleted from the chart) 11/30 23:49 23:30 BP 164 / 104; Pulse 82bpm; Resp 18bpm; Spontaneous; Pulse Ox 98%; ca1 ca1 23:55 23:30 BP 164 / 104; Pulse 82bpm; Resp 18bpm; Spontaneous; Pulse Ox 98% RA; ca1 ca1
--- NOTE | 2018-11-30 23:55 | EDPHYS ---
Physician Documentation [facility] Name: Cammie Mcclellan Age: 88 yrs Sex: Male : 1930 Arrival Date: 11/30/2018 Time: 20:34 Bed 17 Private MD: ED Physician Jose De Jesus Medina HPI: 12/01 05:04 This 88 yrs old Male presents to ER via Wheelchair with complaints of Urinary tw4 Retention, Abdominal Pain. 05:04 The patient presents with urinary symptoms, dysuria, retention, unable to void, tw4 HEMATURIA. Onset: The symptoms/episode began/occurred today. Modifying factors: The symptoms are alleviated by nothing, the symptoms are aggravated by nothing. Associated signs and symptoms: The patient has no apparent associated signs or symptoms. The patient has not experienced similar symptoms in the past. Historical: - Allergies: 11/30 20:50 Codeine; iw 20:50 PENICILLINS; iw 20:50 Vicodin; iw - Home Meds: 20:50 aspirin 81 mg Oral chew 1 tab once daily [Active]; ferrous sulfate 324 mg (65 mg iron) iw Oral TbEC [Active]; Namenda 5 mg Oral tab 2 tabs 2 times per day [Active]; risperidone oral oral [Active]; Zyrtec 10 mg Oral tab 1 tab once daily [Active]; Singulair 10 mg Oral tab 1 tab once daily [Active]; - PMHx: 20:50 Currently on Chemotherapy; Hypertension; mesothelioma; Prostate Cancer; iw - PSHx: 20:50 colon surgery; prostate cancer sx; Colostomy; iw - Immunization history:: Adult Immunizations up to date. - Ebola Screening: : Patient negative for fever greater than or equal to 101.5 degrees Fahrenheit, and additional compatible Ebola Virus Disease symptoms Patient denies exposure to infectious person Patient denies travel to an Ebola-affected area in the 21 days before illness onset No symptoms or risks identified at this time. - Social history:: Smoking status: Patient/guardian denies using tobacco. ROS: 12/01 05:04 Constitutional: Negative for fever, chills, and weight loss, Eyes: Negative for injury, tw4 pain, redness, and discharge, Cardiovascular: Negative for chest pain, palpitations, and edema, Respiratory: Negative for shortness of breath, cough, wheezing, and pleuritic chest pain, Abdomen/GI: Negative for abdominal pain, nausea, vomiting, diarrhea, and constipation, Back: Negative for injury and pain. : Positive for urinary symptoms, burning with urination, difficulty urinating, Negative for small amounts, bladder incontinence, foul smelling urine, penile pain, testicular pain Exam: 05:04 Constitutional: This is a well developed, well nourished patient who is awake, alert, tw4 and in no acute distress. Head/Face: Normocephalic, atraumatic. Chest/axilla: Normal chest wall appearance and motion. Nontender with no deformity. No lesions are appreciated. Cardiovascular: Regular rate and rhythm with a normal S1 and S2. No gallops, murmurs, or rubs. Normal PMI, no JVD. No pulse deficits. Respiratory: Lungs have equal breath sounds bilaterally, clear to auscultation and percussion. No rales, rhonchi or wheezes noted. No increased work of breathing, no retractions or nasal flaring. Abdomen/GI: Soft, non-tender, with normal bowel sounds. No distension or tympany. No guarding or rebound. No evidence of tenderness throughout. Male : Normal genitalia with no discharge or lesions. MS/ Extremity: Pulses equal, no cyanosis. Neurovascular intact. Full, normal range of motion. Neuro: Awake and alert, GCS 15, oriented to person, place, time, and situation. Cranial nerves II-XII grossly intact. Motor strength 5/5 in all extremities. Sensory grossly intact. Cerebellar exam normal. Normal gait. Vital Signs: 11/30 20:48 BP 146 / 88; Pulse 86; Resp 16; Temp 97.8; Pulse Ox 98% ; Weight 65.77 kg; Height 5 ft. iw 6 in. (167.64 cm); Pain 0/10; 21:25 BP 156 / 89; Pulse 87; Resp 17 S; Temp 98; Pulse Ox 99% on R/A; ca1 22:00 BP 144 / 89; Pulse 80; Resp 18 S; Pulse Ox 99% on R/A; ca1 22:32 BP 168 / 87; Pulse 85; Resp 17 S; Temp 98.(O); Pulse Ox 100% on R/A; ca1 22:45 BP 146 / 81; Pulse 85; Resp 17 S; Pulse Ox 98% on R/A; ca1 23:15 BP 164 / 104; Pulse 82; Resp 18 S; Pulse Ox 98% on R/A; ca1 23:40 BP 148 / 91; Pulse 81; Resp 18; Pulse Ox 97% on R/A; lp1 20:48 Body Mass Index 23.40 (65.77 kg, 167.64 cm) iw MDM: 21:12 Patient medically screened. tw4 12/01 05:04 Differential diagnosis: nonspecific abdominal pain. Data reviewed: vital signs, nurses tw4 notes. Data interpreted: Pulse oximetry: Interpretation: normal. Counseling: I had a detailed discussion with the patient and/or guardian regarding: the historical points, exam findings, and any diagnostic results supporting the discharge/admit diagnosis, lab results, radiology results. Special discussion: I discussed with the patient/guardian in detail that at this point there is no indication for admission to the hospital. It is understood, however, that if the symptoms persist or worsen the patient needs to return immediately for re-evaluation. Based on the history and exam findings, there is no indication for further emergent testing or inpatient evaluation. I discussed with the patient/guardian the need to see the urologist for further evaluation of the symptoms. ED course: Pt's initial bladder scan revealed only 57cc of urine in bladder. Pt was recently here in the ED with urinary retention . 11/30 21:53 Order name: Urine Microscopic Only; Complete Time: 23:17 [facility] 11/30 21:53 Order name: CT Stone Protocol [facility] 11/30 21:53 Order name: Urine Dipstick-Ancillary (obtain specimen); Complete Time: 22:32 [facility] 11/30 22:05 Order name: Straight Cath; Complete Time: 22:32 ca1 Administered Medications: 11/30 23:54 Drug: Macrobid 100 mg Route: PO; lp1 12/01 00:01 Follow up: Response: Medication administered at discharge. lp1 Disposition: 11/30/18 23:54 Discharged to Home. Impression: Dysuria, Hematuria. - Condition is Stable. - Discharge Instructions: Dysuria, Hematuria, Adult. - Prescriptions for Macrobid 100 mg Oral Capsule - take 1 capsule by ORAL route every 12 hours for 7 days; 14 capsule. - Medication Reconciliation Form, Thank You Letter, Antibiotic Education, Prescription Opioid Use form. - Follow up: Private Physician; When: Upon discharge from the Emergency Department; Reason: If symptoms return, Recheck today's complaints, Continuance of care. - Problem is new. - Symptoms have improved. Signatures: Dispatcher [employer] Cindy Hernandez, RN RN iw Neelam Sandoval RN RN lp1 Jose De Jesus Medina MD MD tw4 Bhavna Britt RN RN ca1 Corrections: (The following items were deleted from the chart) 11/30 22:05 21:23 Huerta ordered. tw4 ca1 12/01 00:01 11/30 23:54 11/30/2018 23:54 Discharged to Home. Impression: Dysuria; Hematuria. lp1 Condition is Stable. Forms are Medication Reconciliation Form, Thank You Letter, Antibiotic Education, Prescription Opioid Use. Follow up: Private Physician; When: Upon discharge from the Emergency Department; Reason: If symptoms return, Recheck today's complaints, Continuance of care. Problem is new. Symptoms have improved. tw4
[2018-12-01] MEDS ORDERED: NITROFURAN MACRO 100 MG CAP PO ONE (00:03)
[2018-12-01 01:29] VITALS: TEMP 98
[2018-12-01 01:47] VITALS: BP 148/91; O2SAT 97
--- NOTE | 2018-12-01 11:40 | RAD REPORT ---
EXAM DESCRIPTION: CT - Stone Protocol - 11/30/2018 10:41 pm CLINICAL HISTORY: 88 years Male dysuria TECHNIQUE: Contiguous axial images obtained through the abdomen and pelvis without IV contrast. Co yany and sagittal reformatted images provided. This CT exam was performed according to our departmental dose-optimization program, which includes on e or more of the following dose reduction techniques: automated exposure control, adjustment of the m A and/or kV according to patient size, and/or use of iterative reconstruction technique. COMPARISON: No prior exams provided for comparison. FINDINGS: There are single nonobstructing calculi in the upper poles of both kidneys, measuring up t o 3 mm on the left. No other renal, ureteral, or bladder calculi. There is no hydronephrosis or perin ephric stranding on either side. Prior prostatectomy, pelvic sidewall dissection, and distal colonic resection with a left periumbilic al ostomy. No visualized bowel inflammation, obstruction, pneumatosis, free intraperitoneal air, or ascites. Scarring and emphysematous changes at both lung bases 5 cm right pericardial cyst. Atherosclerosis wi th focal dilatation of the infrarenal abdominal aorta measuring up to 2.3 cm. No retroperitoneal hemo rrhage. Low-attenuation hepatic foci likely represent cysts. Prior splenectomy. The unenhanced biliary tree, gallbladder, and pancreas are normal. Likely benign thickening of the ad renal glands. Right inguinal lymphadenopathy with nodes measuring up to 1 cm in short axis. No other abdominal or p elvic lymphadenopathy. Chronic degenerative changes present throughout the spine and at both hips. No acute fracture. IMPRESSION: Nonobstructing intrarenal calculi bilaterally. No other urinary calculi. No urinary obst ruction. Extensive postsurgical changes including prior prostatectomy. There are enlarged right inguinal lymph nodes, raising concern for metastatic disease. 2.3 cm focal dilatation of the infrarenal abdominal aorta. Electronically signed by: Elisha Valentine MD 11/30/2018 10:51 PM CDT Due to temporary technical issues with the PACS/Fluency reporting system, reports are being signed by the in house radiologist as a courtesy to ensure prompt reporting. The interpreting radiologist is f ully responsible for the content of the report.
== END 2018-12-01 00:01 | disposition home or self-care (01) ==
LOC: ER 20:32
DX: C61 Malignant neoplasm of prostate (principal); R31.9 Hematuria, unspecified; I10 Essential (primary) hypertension; C45.9 Mesothelioma, unspecified; Z79.82 Long term (current) use of aspirin; Z88.0 Allergy status to penicillin; Z88.5 Allergy status to narcotic agent
CPT/HCPCS: 51702; 74176; 76377; 81015; 99284

== ENCOUNTER 2018-12-09 09:40 | Day surgery (SDC) | payer OTHER, BC ==
[2018-12-05 14:32] LABS: Potassium 4.7 mmol/L (3.5-5.1)
[2018-12-05 14:38] LABS: Absolute Lymphocytes (CBC) 1.4 K/uL (0.7-4.9); Absolute Monocytes 1.1 K/uL (0.1-1.3); Absolute Neutrophil 6.7 K/uL (1.8-8.0); Basophils % 0.4 % (0-1.3); Eosinophils % 0.3 % (0-4.4); Hematocrit 35.8 % (39.6-49.0); MPV 8.9 fL (7.6-11.3); Monocytes % 11.6 % (3.3-12.3); RBC Red Blood Cell Count 3.84 M/uL (4.33-5.43)
[2018-12-05 14:43] LABS: Protime INR 1.02
--- NOTE | 2018-12-05 14:54 | RAD REPORT ---
EXAM DESCRIPTION: RAD - Chest Pa And Lat (2 Views) - 12/05/2018 2:39 pm CLINICAL HISTORY: Preop chest, pending urinary bladder tumor removal COMPARISON: August 2016 TECHNIQUE: PA and lateral views of the chest were obtained. FINDINGS: The lungs are normal volume. Diaphragm is flattened with increased retrosternal space. Pat ient has a diffusely fibrotic lung pattern that matches prior imaging. An acute lung process is not s een. However, the extent of fibrotic change could mask the very earliest stages of an interstitial ed sae or infiltrate. No significant failure or volume overload. Heart size is normal and central vasculature is within normal limits. No pleural effusion or pneumot horax seen. No acute bony finding noted. No aortic abnormality. IMPRESSION: Prominent COPD changes not significantly different from comparison imaging. No acute fin ding confirmed.
[2018-12-05 15:05] LABS: Urine Appearance TURBID; Urine Blood 3+ (NEG); Urine Color RED; Urine Glucose NEGATIVE (NEG); Urine Protein 3+ (NEG); Urine Specific Gravity 1.025 (1.005-1.030)
[2018-12-05 15:12] LABS: Urine Bilirubin NEGATIVE (NEG)
[2018-12-05 15:18] LABS: Urine Bacteria 20-50 /HPF (NONE SEEN); Urine Culture Reflex Order REFLEXED; Urine RBC LOADED /HPF (NONE SEEN)
--- NOTE | 2018-12-05 16:43 | EKG ---
Test Date: 2018-12-05 Test Time: 14:06:44 Multi Purpose Machine Operator: JESUS MEASUREMENT RESULTS: Intervals: Rate: 91 DC: 168 QRSD: 112 QT: 396 QTc: 487 Weed: P: 67 DC: 168 QRS: -79 T: 36 INTERPRETIVE STATEMENTS: Sinus rhythm with marked sinus arrhythmia Left axis deviation Prolonged QT Abnormal ECG Compared to ECG 09/11/2016 14:46:44 Prolonged QT interval now present Atrial premature complex(es) no longer present Right bundle-branch block no longer present Electronically Signed On 12-05-18 16:42:30 CDT by Bartolome Cardona
[2018-12-09] MEDS ORDERED: Ringers Lactate 1,000 ML IV ONE (09:59)
[2018-12-09] MEDS ORDERED: GENTAMICIN 80 MG/100 ML BAG 80 MG/100 ML BAG IV ONE (09:59)
[2018-12-09] MEDS ORDERED: PROPOFOL 200 MG/20 ML VIAL IV ONE ×2 (10:49→11:17)
[2018-12-09] MEDS ORDERED: FENTANYL CITR 100 MCG/2 ML ONE (10:50)
[2018-12-09] MEDS ORDERED: LIDOCAINE 1% MPF 5 ML VIAL ONE (10:53)
[2018-12-09 13:23] VITALS: BP 176/86; TEMP 98.2; O2SAT 99
--- NOTE | 2018-12-09 15:09 | RAD REPORT ---
EXAM DESCRIPTION: CT - Abdomen Pelvis W Contrast - 12/09/2018 2:56 pm CLINICAL HISTORY: Prostate and bladder carcinoma COMPARISON: September 2018, March 2017 TECHNIQUE: Biphasic, helical CT imaging of the abdomen and pelvis was performed following 100 ml non -ionic IV contrast. Oral contrast was given. All CT scans are performed using dose optimization technique as appropriate and may include automated exposure control or mA/KV adjustment according to patient size. FINDINGS: Minimal right pleural effusion is present. There is partial atelectasis in each posterior gutter. Cardiac silhouette is prominent. No pericardial effusion. A 4.7 centimeter right-side pericar dial cyst is present not clearly different from comparison. In the inferior right lobe of the liver a 15 millimeter oval low-density mass is present stable back to 2016. This is most likely a cyst. No suspicious liver lesions seen. Spleen is absent. A small acce ssory splenic nodule is present near the pancreatic tail. No acute pancreatic process seen. Gallbladd er and biliary tree are also without suspicious finding. Gallstones can be occult on CT imaging. Symmetric renal function is seen with no hydronephrosis or suspicious renal mass. No pyelonephritis o r acute parenchymal process. Punctate calcifications seen upper pole left kidney and upper pole right kidney. Small 8 mm cyst posterior margin of the right kidney. Urinary bladder is contracted around a Huerta catheter limiting assessment. Numerous surgical clips are present in the floor the pelvis. Prostate gland has been resected. Strand ing is present in the fatty tissues. This could be postsurgical scarring. No new or enlarging mass. N o adrenal abnormalities. No dilated bowel loops or bowel wall thickening. Moderate stool volume present throughout the colon. No free air, free fluid or inflammatory stranding. Left abdomen colostomy site shows no suspicious f inding. No free air or free fluid. In the superior right inguinal canal there are 2 lymph nodes present. Largest lymph node is 22 x 12 m m. An adjacent lymph node is 14 mm in diameter. The smaller lymph node is stable. The larger lymph no de is new from September. IMPRESSION: Urinary bladder is contracted around a Huerta catheter. Prostatectomy surgical changes ar e noted. Scarring changes are present. No new or enlarging mass along the pelvic floor. A new 22 x 15 millimeter right inguinal lymph node is present. An adjacent 15 millimeter lymph node i s stable from September. No pelvic floor or aortoiliac chain new lymphadenopathy. Minimal right pleural effusion with bilateral lung base atelectasis and right pericardial cyst are st able.
== END 2018-12-09 15:00 | disposition home or self-care (01) ==
LOC: OR 09:40
PROVIDERS: ATTEND Urology
PROC: 0TBB8ZX Excision of Bladder, Via Natural or Artificial Opening Endoscopic, Diagnostic (ICD-10-PCS; principal; 2018-12-09 11:00)
DX: C67.5 Malignant neoplasm of bladder neck (principal); F03.90 Unspecified dementia, unspecified severity, without behavioral disturbance, psychotic disturbance, mood disturbance, and anxiety; Z85.46 Personal history of malignant neoplasm of prostate; Z85.048 Personal history of other malignant neoplasm of rectum, rectosigmoid junction, and anus; Z79.82 Long term (current) use of aspirin; Z88.6 Allergy status to analgesic agent; Z88.0 Allergy status to penicillin; Z87.891 Personal history of nicotine dependence; Z90.81 Acquired absence of spleen
CPT/HCPCS: 93005; 87088; 85025; 81001; 80048; 36415; 86900; 86850; 85610; 86901; 88305; 85730; 74177; 71046; 52235; Q9967; J2704 ×2; J3010; J1580; 87086

== ENCOUNTER 2018-12-15 09:38 | Inpatient (IN) | payer OTHER, BC ==
[2018-12-15] MEDS ORDERED: NA CHLORIDE 0.9% 1,000 ML ONE (10:26)
--- NOTE | 2018-12-15 10:42 | RAD REPORT ---
EXAM DESCRIPTION: Karla Single View12/15/2018 10:30 am CLINICAL HISTORY: Chest pain COMPARISON: November 2018 FINDINGS: Lungs are hyperaerated consistent with COPD. Right cardiophrenic opacity unchanged previou sly shown to represent a pericardial cyst The lungs appear clear of acute infiltrate. The heart is normal size IMPRESSION: No acute abnormalities displayed
--- NOTE | 2018-12-15 10:44 | RAD REPORT ---
EXAM DESCRIPTION: CT - Head Brain Wo Cont - 12/15/2018 10:35 am CLINICAL HISTORY: Alteration of awareness/confusion COMPARISON: None TECHNIQUE: Computed axial tomography of the head was obtained. IV contrast was not requested. All CT scans are performed using dose optimization technique as appropriate and may include automated exposure control or mA/KV adjustment according to patient size. FINDINGS: An intracranial bleed is not seen . The ventricles are normal in caliber. No extra-axial fluid collection is noted. Moderate low-density areas within periventricular, deep and subcortical white matter likely represent ischemic changes secondary to small vessel disease. Opacification of the left mastoids IMPRESSION: No acute intracranial abnormality is seen. If patient's symptoms persist MRI of the bra in would be recommended. Opacification left mastoids may indicate mastoiditis
[2018-12-15 10:57] LABS: Absolute Lymphocytes (CBC) 0.8 K/uL (0.7-4.9); Absolute Monocytes 0.9 K/uL (0.1-1.3); Absolute Neutrophil 8.2 K/uL (1.8-8.0); Basophils % 0.5 % (0-1.3); Hematocrit 37.8 % (39.6-49.0); Lymphocytes % 7.9 % (15.3-44.8); MPV 8.7 fL (7.6-11.3); Monocytes % 8.7 % (3.3-12.3); RBC Red Blood Cell Count 4.13 M/uL (4.33-5.43)
[2018-12-15 10:59] LABS: Protime INR 1.11
[2018-12-15 11:15] LABS: ALT/SGPT 16 U/L (12-78); AST/SGOT 15 U/L (15-37); Albumin 3.1 g/dL (3.4-5.0); Alkaline Phosphatase 131 U/L (45-117); BUN Blood Urea Nitrogen 19 mg/dL (7-18); Bicarbonate 27 mmol/L (21-32); Bilirubin Direct 0.2 mg/dL (0-0.2); Bilirubin Total 0.7 mg/dL (0.2-1.0); Creatine Phosphokinase 40 U/L (39-308); Glucose Level 90 mg/dL (74-106); Lipase 96 U/L (73-393); Protein, Total 6.9 g/dL (6.4-8.2); Sodium Level 143 mmol/L (136-145); Troponin (Emerg Dept Use Only) < 0.02 ng/mL (0.0-0.045)
[2018-12-15 11:23] LABS: Urine Bacteria 20-50 /HPF (NONE SEEN); Urine Culture Reflex Order REFLEXED; Urine RBC >50 /HPF (NONE SEEN)
[2018-12-15 11:56] LABS: Urine Blood 3+ (NEG); Urine Glucose NEGATIVE (NEG); Urine Protein 2+ (NEG); Urine Specific Gravity 1.015 (1.005-1.030); Urine pH 6.5 (5.0-7.0)
[2018-12-15] MEDS ORDERED: CEFTRIAXONE/SWI 1gm 1 GM/10 ML SYR ONE (13:26)
[2018-12-15] MEDS ORDERED: ENALAPRILAT 1.25 MG/ML VIAL IV ONE (13:37)
--- NOTE | 2018-12-15 14:18 | ER ---
Nurse's Notes [facility] Name: Cammie Mcclellan Age: 88 yrs Sex: Male : 1930 Arrival Date: 12/15/2018 Time: 09:42 Bed 14 Private MD: Diagnosis: Altered mental status, unspecified;Cystitis Presentation: 12/15 09:51 Presenting complaint: Child states: per daughter, he had a procedure at the urologist clinic Saturday and had a caputo inserted after that; recently we noticed he is weak in fact today he was able to walk, today, he doesn't know my name, and he hasnt slept for a while and lost his appetite; denies fever and chills; denies any pain; on triage, pt is A\T\O x 4;. Transition of care: patient was not received from another setting of care. Onset of symptoms was December 15, 2018. Risk Assessment: Do you want to hurt yourself or someone else? Patient reports no desire to harm self or others. Initial Sepsis Screen: Does the patient meet any 2 criteria? No. Patient's initial sepsis screen is negative. Does the patient have a suspected source of infection? No. Patient's initial sepsis screen is negative. Care prior to arrival: None. 09:51 Method Of Arrival: Wheelchair 09:51 Acuity: KYREE 3 Triage Assessment: 09:57 General: Appears in no apparent distress. uncomfortable, Behavior is calm, cooperative, hj appropriate for age. Pain: Denies pain. Neuro: Level of Consciousness is awake, alert, obeys commands, Oriented to person, place, time, situation, Appropriate for age. Historical: - Allergies: 09:57 Codeine; 09:57 PENICILLINS; 09:57 Vicodin; hj - Home Meds: 09:57 aspirin 81 mg Oral chew 1 tab once daily [Active]; ferrous sulfate 324 mg (65 mg iron) Oral TbEC [Active]; Namenda 5 mg Oral tab 2 tabs 2 times per day [Active]; respidone [Active]; risperidone Oral [Active]; Singulair 10 mg Oral tab 1 tab once daily [Active]; Zyrtec 10 mg Oral tab 1 tab once daily [Active]; - PMHx: 09:57 Currently on Chemotherapy; Hypertension; mesothelioma; Prostate Cancer; hj - PSHx: 09:57 colon surgery; prostate cancer sx; Colostomy; hj - Immunization history:: Adult Immunizations up to date. - Social history:: Smoking status: Patient/guardian denies using tobacco, Patient/guardian denies using alcohol. - Ebola Screening: : Patient negative for fever greater than or equal to 101.5 degrees Fahrenheit, and additional compatible Ebola Virus Disease symptoms Patient denies exposure to infectious person Patient denies travel to an Ebola-affected area in the 21 days before illness onset. Screenin:57 Abuse screen: Denies threats or abuse. Denies injuries from another. Nutritional hj screening: No deficits noted. Tuberculosis screening: No symptoms or risk factors identified. Fall Risk Secondary diagnosis (15 points). Assessment: 09:58 General: Appears in no apparent distress. uncomfortable, Behavior is calm, cooperative, hj appropriate for age. Pain: Denies pain. Neuro: Level of Consciousness is awake, alert, obeys commands, Oriented to person, place, time, situation, Appropriate for age. Cardiovascular: Capillary refill < 3 seconds Patient's skin is warm and dry. Respiratory: Airway is patent Respiratory effort is even, unlabored, Respiratory pattern is regular, symmetrical. GI: No signs and/or symptoms were reported involving the gastrointestinal system. : No signs and/or symptoms were reported regarding the genitourinary system. EENT: No signs and/or symptoms were reported regarding the EENT system. Derm: No signs and/or symptoms reported regarding the dermatologic system. Musculoskeletal: No signs and/or symptoms reported regarding the musculoskeletal system. 10:01 Reassessment: HR drops from 80's to low 40's and upper 30's; to inform MD;. hj 11:46 Reassessment: Patient is lying in bed resting with family at bedside. ae4 12:07 Reassessment: Provider notified of elevated blood pressure. ae4 Vital Signs: 09:54 BP 149 / 91; Pulse 79; Resp 18; Temp 98.5(O); Pulse Ox 96% on R/A; Weight 65.77 kg; hj Height 5 ft. 7 in. (170.18 cm); Pain 0/10; 10:01 BP 144 / 58; Pulse 80; Resp 18; Pulse Ox 98% on R/A; hj 12:04 BP 200 / 90 RA (man/reg); Pulse 88; Resp 16; Pulse Ox 100% on R/A; ae4 12:36 BP 197 / 110; Pulse 88; Resp 14; Pulse Ox 100% on R/A; ae4 13:00 BP 201 / 106 LA; Pulse 87; Resp 15 S; Temp 97.6(O); Pulse Ox 100% on R/A; ae4 13:17 BP 205 / 94; Pulse 83; Resp 17; Pulse Ox 99% on R/A; ae4 13:43 BP 194 / 95; Pulse 88; Resp 14; Pulse Ox 99% on R/A; ae4 14:05 BP 163 / 100; Pulse 96; Resp 16; Pulse Ox 96% on R/A; ae4 14:50 BP 177 / 84; Pulse 93; Resp 22; Pulse Ox 95% on R/A; ae4 15:47 BP 162 / 99; Pulse 72; Resp 15; Pulse Ox 95% on R/A; ae4 16:14 BP 148 / 100; Pulse 95; Resp 16; Pulse Ox 95% on R/A; ae4 09:54 Body Mass Index 22.71 (65.77 kg, 170.18 cm) hj ED Course: 09:42 Patient arrived in ED. rg4 09:49 Lisandro Harvey MD is Attending Physician. gs 09:51 Justin Saleh, JUVENTINO is Primary Nurse. hj 09:54 Triage completed. hj 09:58 Arm band placed on right wrist. hj 09:58 Patient has correct armband on for positive identification. Placed in gown. Bed in low hj position. Call light in reach. Side rails up X2. Adult w/ patient. 10:06 EKG done, by central sterile supply technician. reviewed by Lisandro Harvey MD. at1 10:15 First set of blood cultures drawn by me. jb1 10:18 Urine collected: Caputo catheter specimen, clear. hj 10:22 X-ray completed. Portable x-ray completed in exam room. Patient tolerated procedure sw well. 10:25 CT Head Brain wo Cont In Process Unspecified. EDMS 10:30 Second set of blood cultures drawn by me. jb1 10:32 Chest Single View XRAY In Process Unspecified. EDMS 10:36 Inserted saline lock: 22 gauge in left antecubital area, using aseptic technique. Blood jb1 collected. 10:36 Initial lab(s) drawn, by ma, sent to lab. jb1 11:30 Kendrick Herrera, RN is Primary Nurse. ae4 14:17 Faith Lebron MD is Hospitalizing Provider. gs 16:58 Repeat EKG was done. sm3 17:21 No provider procedures requiring assistance completed. Patient admitted, IV remains in ae4 place. Administered Medications: 10:30 Drug: NS 0.9% 1000 ml Route: IV; Rate: 1 bolus; Site: left antecubital; hj 17:22 Follow up: IV Status: Completed infusion ae4 13:24 Drug: Rocephin - (cefTRIAXone) 1 grams Route: IVPB; Infused Over: 30 mins; Site: left ae4 antecubital; 17:23 Follow up: IV Status: Completed infusion ae4 13:29 Drug: Enalaprilat 0.625 mg Route: IV; Rate: calculated rate; Site: left antecubital; ae4 13:44 Follow up: Response: Blood pressure is lowered; IV Status: Completed infusion ae4 Point of Care Testing: Blood Glucose: 10:22 Blood Glucose: 101 mg/dL; hj Ranges: Outcome: 14:17 Decision to Hospitalize by Provider. 17:21 Admitted to Med/surg accompanied by tech, family with patient, via stretcher, room 401, ae4 with chart, Report called to Agustín receiving nurse. 17:21 Condition: stable 17:21 Discharge instructions given to family, Instructed on the need for admit, Demonstrated understanding of instructions. 17:23 Patient left the ED. ae4 Signatures: Dispatcher [employer] EDMS Brayden Mcclure jb1 Tita Stewart, hammer smith EKG Tat1 Anika Benson Henry, RN RN Natalie French 4 Lisandro Harvey MD MD Felipa Bell 3 Kendrick Herrera, RN RN ae4
--- NOTE | 2018-12-15 14:18 | EDPHYS ---
Physician Documentation [facility] Name: Cammie Mcclellan Age: 88 yrs Sex: Male : 1930 Arrival Date: 12/15/2018 Time: 09:42 Bed 14 Private MD: ED Physician Lisandro Harvey HPI: 12/15 15:09 This 88 yrs old Male presents to ER via Wheelchair with complaints of Altered gs Mental Status, Decreased Appetite. 15:09 Onset: The symptoms/episode began/occurred 3 day(s) ago. Possible causes: sepsis, the gs patient has a known UTI history, dx uti catherter placed bladder outlet obstruction. Associated signs and symptoms: Pertinent positives: confusion, Pertinent negatives: seizure. The patient has experienced similar episodes in the past, a few times. Historical: - Allergies: 09:57 Codeine; hj 09:57 PENICILLINS; hj 09:57 Vicodin; hj - Home Meds: 09:57 aspirin 81 mg Oral chew 1 tab once daily [Active]; ferrous sulfate 324 mg (65 mg iron) hj Oral TbEC [Active]; Namenda 5 mg Oral tab 2 tabs 2 times per day [Active]; respidone [Active]; risperidone Oral [Active]; Singulair 10 mg Oral tab 1 tab once daily [Active]; Zyrtec 10 mg Oral tab 1 tab once daily [Active]; - PMHx: 09:57 Currently on Chemotherapy; Hypertension; mesothelioma; Prostate Cancer; hj - PSHx: 09:57 colon surgery; prostate cancer sx; Colostomy; hj - Immunization history:: Adult Immunizations up to date. - Social history:: Smoking status: Patient/guardian denies using tobacco, Patient/guardian denies using alcohol. - Ebola Screening: : Patient negative for fever greater than or equal to 101.5 degrees Fahrenheit, and additional compatible Ebola Virus Disease symptoms Patient denies exposure to infectious person Patient denies travel to an Ebola-affected area in the 21 days before illness onset. ROS: 15:09 Unable to obtain ROS due to baseline dementia. gs Exam: 15:09 Head/Face: Normocephalic, atraumatic. Eyes: Pupils equal round and reactive to light, gs extra-ocular motions intact. Lids and lashes normal. Conjunctiva and sclera are non-icteric and not injected. Cornea within normal limits. Periorbital areas with no swelling, redness, or edema. ENT: Nares patent. No nasal discharge, no septal abnormalities noted. Tympanic membranes are normal and external auditory canals are clear. Oropharynx with no redness, swelling, or masses, exudates, or evidence of obstruction, uvula midline. Mucous membranes moist. Neck: Trachea midline, no thyromegaly or masses palpated, and no cervical lymphadenopathy. Supple, full range of motion without nuchal rigidity, or vertebral point tenderness. No Meningismus. Chest/axilla: Normal chest wall appearance and motion. Nontender with no deformity. No lesions are appreciated. 15:09 Abdomen/GI: Soft, non-tender, with normal bowel sounds. No distension or tympany. No guarding or rebound. No evidence of tenderness throughout. Back: No spinal tenderness. No costovertebral tenderness. Full range of motion. Skin: Warm, dry with normal turgor. Normal color with no rashes, no lesions, and no evidence of cellulitis. MS/ Extremity: Pulses equal, no cyanosis. Neurovascular intact. Full, normal range of motion. 15:09 Constitutional: The patient appears awake, lethargic. 15:09 Cardiovascular: Rate: normal, Rhythm: regular, Pulses: no pulse deficits are appreciated. 15:09 ECG was reviewed by the Attending Physician. 15:09 Respiratory: the patient does not display signs of respiratory distress. 15:09 Neuro: Orientation: to person, Cranial nerves: no acute changes, Motor: moves all fours, Sensation: no acute changes. 15:09 Neuro: Orientation: confused. Vital Signs: 09:54 BP 149 / 91; Pulse 79; Resp 18; Temp 98.5(O); Pulse Ox 96% on R/A; Weight 65.77 kg; hj Height 5 ft. 7 in. (170.18 cm); Pain 0/10; 10:01 BP 144 / 58; Pulse 80; Resp 18; Pulse Ox 98% on R/A; hj 12:04 BP 200 / 90 RA (man/reg); Pulse 88; Resp 16; Pulse Ox 100% on R/A; ae4 12:36 BP 197 / 110; Pulse 88; Resp 14; Pulse Ox 100% on R/A; ae4 13:00 BP 201 / 106 LA; Pulse 87; Resp 15 S; Temp 97.6(O); Pulse Ox 100% on R/A; ae4 13:17 BP 205 / 94; Pulse 83; Resp 17; Pulse Ox 99% on R/A; ae4 13:43 BP 194 / 95; Pulse 88; Resp 14; Pulse Ox 99% on R/A; ae4 14:05 BP 163 / 100; Pulse 96; Resp 16; Pulse Ox 96% on R/A; ae4 14:50 BP 177 / 84; Pulse 93; Resp 22; Pulse Ox 95% on R/A; ae4 15:47 BP 162 / 99; Pulse 72; Resp 15; Pulse Ox 95% on R/A; ae4 16:14 BP 148 / 100; Pulse 95; Resp 16; Pulse Ox 95% on R/A; ae4 09:54 Body Mass Index 22.71 (65.77 kg, 170.18 cm) hj MDM: 10:07 Patient medically screened. 15:09 Differential Diagnosis: electrolyte abnormality, hypoglycemia, intracranial bleed, gs sepsis. Data reviewed: vital signs, nurses notes, old medical records, lab test result(s), EKG, radiologic studies. Counseling: I had a detailed discussion with the patient and/or guardian regarding: the historical points, exam findings, and any diagnostic results supporting the discharge/admit diagnosis, the need for further work-up and treatment in the hospital. Response to treatment: the patient's symptoms have markedly improved after treatment, and as a result, I will admit patient. 12/15 10:07 Order name: Basic Metabolic Panel; Complete Time: 12:39 12/15 10:07 Order name: Blood Culture Adult (2) 12/15 10:07 Order name: CBC with Diff; Complete Time: 12:39 12/15 10:07 Order name: CPK; Complete Time: 12:39 12/15 10:07 Order name: Lactate; Complete Time: 12:39 12/15 10:07 Order name: LFT's; Complete Time: 12:39 12/15 10:07 Order name: Lipase; Complete Time: 12:39 12/15 10:07 Order name: Procalcitonin; Complete Time: 12:39 12/15 10:07 Order name: Protime (+inr); Complete Time: 12:39 12/15 10:07 Order name: Troponin (emerg Dept Use Only); Complete Time: 12:39 gs 12/15 10:07 Order name: Urine Microscopic Only; Complete Time: 12:39 gs 12/15 10:07 Order name: Chest Single View XRAY; Complete Time: 10:51 gs 12/15 11:38 Order name: Urine Dipstick--Ancillary (enter results) bd 12/15 11:58 Order name: Urine Dipstick-Ancillary; Complete Time: 12:39 EDMS 12/15 10:07 Order name: Accucheck; Complete Time: 10:22 gs 12/15 10:07 Order name: Cardiac monitoring; Complete Time: 10:08 gs 12/15 10:07 Order name: EKG - Nurse/Tech; Complete Time: 10:08 gs 12/15 10:07 Order name: IV Saline Lock - Large Bore; Complete Time: 10:36 gs 12/15 10:07 Order name: Labs collected and sent; Complete Time: 10:37 gs 12/15 10:07 Order name: O2 Per Protocol; Complete Time: 10:09 gs 12/15 10:07 Order name: O2 Sat Monitoring; Complete Time: 10:09 gs 12/15 10:07 Order name: Urine Dipstick-Ancillary (obtain specimen); Complete Time: 10:17 gs 12/15 10:08 Order name: CT Head Brain wo Cont; Complete Time: 10:51 gs EC:09 Rate is 90 beats/min. Rhythm is regular. KY interval is normal. QRS interval is gs prolonged. T waves are Inverted. Clinical impression: NSR w/ Non-specific ST/T Changes. Interpreted by me. Administered Medications: 10:30 Drug: NS 0.9% 1000 ml Route: IV; Rate: 1 bolus; Site: left antecubital; hj 17:22 Follow up: IV Status: Completed infusion ae4 13:24 Drug: Rocephin - (cefTRIAXone) 1 grams Route: IVPB; Infused Over: 30 mins; Site: left ae4 antecubital; 17:23 Follow up: IV Status: Completed infusion ae4 13:29 Drug: Enalaprilat 0.625 mg Route: IV; Rate: calculated rate; Site: left antecubital; ae4 13:44 Follow up: Response: Blood pressure is lowered; IV Status: Completed infusion ae4 Point of Care Testing: Blood Glucose: 10:22 Blood Glucose: 101 mg/dL; hj Ranges: Critical Glucose Levels:Adult <50 mg/dl or >400 mg/dl <40 mg/dl or >180 mg/dl Disposition: 12/15/18 14:17 Hospitalization ordered by Faith Lebrno for Inpatient Admission. Preliminary diagnosis are Altered mental status, unspecified, Cystitis. - Bed requested for Telemetry/MedSurg (Inpatient). - Status is Inpatient Admission. ae4 - Condition is Stable. - Problem is new. - Symptoms have improved. UTI on Admission? Yes Signatures: Dispatcher [employer] EDMS Radha Bermudez Henry, RN RN Lisandro Harvey MD MD Kendrick Herrera RN RN ae4 Corrections: (The following items were deleted from the chart) 16:35 14:17 Hospitalization Ordered by Faith Lebron MD for Inpatient Admission. Preliminary bd diagnosis is Altered mental status, unspecified; Cystitis. Bed requested for Telemetry/MedSurg (Inpatient). Status is Inpatient Admission. Condition is Stable. Problem is new. Symptoms have improved. UTI on Admission? Yes. 17:23 16:35 12/15/2018 14:17 Hospitalization Ordered by Faith Lebron MD for Inpatient ae4 Admission. Preliminary diagnosis is Altered mental status, unspecified; Cystitis. Bed requested for Telemetry/MedSurg (Inpatient). Status is Inpatient Admission. Condition is Stable. Problem is new. Symptoms have improved. UTI on Admission? Yes. bd
--- NOTE | 2018-12-15 15:02 | EKG ---
Test Date: 2018-12-15 Test Time: 10:00:16 Body Shop Technician: COLLEEN MEASUREMENT RESULTS: Intervals: Rate: 90 DE: 168 QRSD: 118 QT: 436 QTc: 533 Frederick: P: 63 DE: 168 QRS: -83 T: 68 INTERPRETIVE STATEMENTS: Sinus rhythm with premature atrial complexes Left axis deviation Right bundle branch block Abnormal ECG Compared to ECG 12/05/2018 14:06:44 Atrial premature complex(es) now present Right bundle-branch block now present Sinus arrhythmia no longer present Prolonged QT interval no longer present Electronically Signed On 12-15-18 15:01:56 CDT by Carlos Enrique Johnson
[2018-12-15] MEDS ORDERED: ONDANSETRON 4 MG/2 ML VIAL IV PRN (17:31)
[2018-12-15] MEDS ORDERED: Meropenem 1000 MG/VIAL IV SCH (17:31)
[2018-12-15] MEDS ORDERED: ACETAMINOPHEN 500 MG TAB PO PRN (17:31)
[2018-12-15 17:34] VITALS: BMI 27.1
[2018-12-15] MEDS: ENOXAPARIN 40 MG/0.4 ML SQ SCH (18:21)
[2018-12-15] MEDS: NA CHLORIDE 0.9% 1,000 ML IV SCH (18:21)
[2018-12-15] MEDS: RISPERIDONE 1 MG TABLET PO SCH (22:23)
[2018-12-15] MEDS: Meropenem 1,000 MG in NA CHLORIDE 0.9% 100 ML IV SCH (22:23)
[2018-12-15] MEDS: MEMANTINE HCL 10 MG TABLET PO SCH (22:24)
[2018-12-15] MEDS ORDERED: TEMAZEPAM 15 MG CAP PO ONE (23:55)
[2018-12-16] MEDS ORDERED: LORazepam 2 MG/ML VIAL IV ONE ×2 (01:22→22:53)
--- NOTE | 2018-12-16 02:55 | HP ---
Date of Admission: 12/15/2018 Code Status: Do not resuscitate. Chief Complaint: Altered mental status, UTI. History Of Present Illness: The patient is an 88-year-old male with past medical history of bladder cancer status post resection along with prostate cancer and colon cancer, comes in with failed outpat ient treatment for UTI. The patient has been in his usual state of health and is mostly alert and or iented, ambulates well, however for the past week has been on antibiotics, on nitrofurantoin, and has not been better. The patient has become more confused. Does have a Huerta catheter in place due to urinary obstruction by Dr. Eagle one week ago. The patient's symptoms are constant, moderate, progre ssively worsening. No significant fever or chills. The patient was brought into the ER by the sara cooney. In the ER, his workup revealed white count of 10,000 with neutrophilia. Procalcitonin and lactat e were negative. This is likely due to the fact that he has been on antibiotics for over a week. Hi s UA was positive with 3+ leukocyte esterase, greater than 50 wbc, 20-50 bacteria. Cultures were obt ained. The patient was given a dose of Rocephin and 1 L normal saline. The patient's blood pressure upon arrival was severely elevated in the 200s over 100s. Therefore, he was given Vasotec, which im proved his blood pressure. The patient was then referred for admission. When seen in the ER, he was awake and alert, confused. Past Medical History: Colon cancer, prostate cancer, urinary bladder cancer, anemia, heart murmur. Surgical History: The patient has had surgery of the bladder. Also has had colon surgery now with c olostomy bag. Allergies: TO CODEINE, HYDROCODONE, AND PENICILLIN. Medications: List reviewed. 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 The kostas ent was a heavy smoker as well, cut in the . The patient lives with his daughter, needs assista nce with activities of daily living. Does not use a walker or a cane for ambulation. Family History: Not pertinent in this 88-year-old male. Review of Systems: Limited due to patient's medical condition; however, according to the family, his mental status has b een altered, likely due to his acute UTI. : Patient has urinary obstruction, currently with Huerta catheter. GI: Patient has colostomy back. Cardio: The patient has some murmur. No chest pain or palpitations. Rest, negative except as per HPI. A 10 point system reviewed. Physical Examination: Vital Signs: Blood pressure 200/90, pulse 88, respirations 16, O2 sat 100% on room air which improve d to 163/100 with Vasotec. General: Awake, alert, disoriented, elderly male, ill-appearing. HEENT: Normocephalic, atraumatic. PERRLA. EOMI. Dry mucous membranes. Oropharynx is clear. Poor dentition. Conjunctivae anicteric. Neck: Supple. No JVD. Trachea midline. CV: S1, S2. Regular rate and rhythm. Peripheral pulses weak. Murmur present. Respiratory: Moving air well bilaterally. No wheezing or stridor. No use of accessory muscles. Gastrointestinal: Abdomen is soft, nontender, nondistended. Positive bowel sounds. Colostomy bag i n place. Extremities: No clubbing or cyanosis. The patient has trace pedal edema. No calf tenderness. Neuro: Cranial nerves 2 through 12 intact grossly. No focal neurological deficit. Speech is normal . Some words are incoherent. Psych: Deferred. Skin: No rashes. Normal skin turgor. Laboratory Data: UA shows 3+ leukocyte esterase, negative nitrite, greater than 50 rbc, greater than 50 wbc, 20-50 urine bacteria. Sodium 143, potassium 4, chloride 108, CO2 27, BUN 19, creatinine 1.1 8, glucose 90, lactate 1.4, calcium 8.6. Troponin, less than 0.02. Procalcitonin, less than 0.05. INR 1.11. WBC 10, H and H 12.7 and 37.8, platelets 369, neutrophils 81%. Imaging Studies: CT scan of the head shows no acute intracranial abnormality; opacification left mas toid, may indicate mastoiditis. Chest x-ray, personally reviewed, shows no acute abnormality. Assessment And Plan: An 88-year-old male with 1.Acute metabolic encephalopathy, likely related to urinary tract infection. Head CT scan is negati ve. No mass or bleeding seen. No acute cerebrovascular accident identified on CT scan. 2.Acute cystitis with hematuria, likely secondary to multi-drug resistant bacteria with failed outpa tient treatment. The patient was on nitrofurantoin for 1 week and different set of antibiotics prior to that. The patient does have urinary retention and currently with Huerta catheter placed by Urolog y. We will consult Dr. Eagle. 3.History of bladder cancer status post surgery. 4.History of colon cancer, status post colostomy bag. 5.Uncontrolled blood pressure. The patient had a previous history of hypertension, however was take n off all of his medications, not well controlled. We will start on p.r.n. medications. 6.Mesothelioma. 7.Normocytic normochromic anemia, likely anemia of chronic disease. 8.Deep vein thrombosis prophylaxis with Lovenox. Plan: Admit the patient to Med/Surg, place as inpatient. We will follow up on blood cultures and ur ine culture. Neurology consultation. Length of stay, greater than 2 midnights. ARELIS Voice ID: [id number]
[2018-12-16 04:11] LABS: Absolute Lymphocytes (CBC) 1.7 K/uL (0.7-4.9); Absolute Monocytes 1.2 K/uL (0.1-1.3); Basophils % 0.9 % (0-1.3); Eosinophils % 1.6 % (0-4.4); Hematocrit 36.2 % (39.6-49.0); Lymphocytes % 18.3 % (15.3-44.8); Monocytes % 13.7 % (3.3-12.3); RBC Red Blood Cell Count 3.94 M/uL (4.33-5.43)
[2018-12-16 04:33] LABS: Albumin 2.8 g/dL (3.4-5.0); Bilirubin Total 0.7 mg/dL (0.2-1.0); Potassium 3.8 mmol/L (3.5-5.1); Protein, Total 6.4 g/dL (6.4-8.2)
[2018-12-16] MEDS ORDERED: POTASSIUM CL SA 10 MEQ TAB PO ONE (06:00)
[2018-12-16] MEDS: NA CHLORIDE 0.9% 1,000 ML IV SCH ×3 (06:51→21:45)
[2018-12-16] MEDS: Meropenem 1,000 MG in NA CHLORIDE 0.9% 100 ML IV SCH ×2 (08:03→20:28)
[2018-12-16] MEDS: ENOXAPARIN 40 MG/0.4 ML SQ SCH (08:04)
[2018-12-16] MEDS: MEMANTINE HCL 10 MG TABLET PO SCH ×2 (08:04→20:28)
--- NOTE | 2018-12-16 11:38 | EKG ---
Test Date: 2018-12-15 Test Time: 16:50:44 Paragliding Instructor: JAZLYN MEASUREMENT RESULTS: Intervals: Rate: 98 AR: 150 QRSD: 122 QT: 408 QTc: 520 Mcgraw: P: 63 AR: 150 QRS: -88 T: 71 INTERPRETIVE STATEMENTS: Sinus rhythm with marked sinus arrhythmia with occasional premature ventricular complexes Left anterior fascicular block Abnormal ECG Compared to ECG 12/15/2018 10:00:16 Ventricular premature complex(es) now present Left anterior fascicular block now present Atrial premature complex(es) no longer present Left-axis deviation no longer present Right bundle-branch block no longer present Electronically Signed On 12-16-18 11:36:01 CDT by Bartolome Cardona
--- NOTE | 2018-12-16 14:11 | CON ---
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 The patient is status post radical retropubic prostatectomy, colon cancer, resection. Catheter was placed due for incontinence. However, as per the family requested, he is admitted now for UTI. Urine culture is pending. He is on Rocephin. I have discussed the issues with the family, I had sent him to [facility] for the muscle invasive bladder cancer for their second opinion. However, the family Bella his daughter who has the power of real estate attorney and they have discussed with the family and decided to not pursue this any further. I have also offered hospice, but she thinks it may be too early for hospice now. The patient does see Dr. Mckeon's PA Angie as primary care. The patient is DNR. He is eating poorly. Recommend some Ensure for the patient. I will recommend discontinue the catheter and place him in diapers for voiding. Past Medical History: Colon cancer, prostate cancer, treatment of bladder cancer, anemia, heart murmur. Surgery; TURBT, colon surgery, radical prostatectomy. Has a colostomy. Allergies: TO CODEINE, HYDROCODONE, PENICILLIN. Medications: List reviewed. Social History: Quit tobacco and alcohol and smoking in the past. Family History: Noncontributory. Review of Systems: Limited due to the patient's condition. Physical Examination: HEENT: Atraumatic and normocephalic. Neck: Supple. Heart: S1, S2. Lungs: Clear. Abdomen: Soft, nontender. Psych: Deferred. Neurologic: Grossly intact. Laboratory Data: Study showed 3+ leukocyte esterase, negative nitrites, greater than 50 rbc's, 20-50 urine bacteria. Electrolytes within normal limits. H and H are 12.7 and 37.8, platelets 369. Imaging study; CT of the head done shows no significant abnormalities. Assessment And Plan: An 88-year-old gentleman with acute metabolic encephalopathy probably related to urinary tract infection. I recommend removing the catheter. Continue high-dose antibiotics. Keep the patient DNR. They do not want any heroic measures to be done. No chest compressions, no heavy medications. The patient is pretty much pre-hospice at this point. It is up to the daughter Bella who has power of real estate attorney when to make a call for hospice. Dr. Mckeon's PA Angie has been notified of the patient's condition. Thank you very much. JEFFERSON Voice ID: [id number] Report ID: [id number] MTDD
--- NOTE | 2018-12-16 14:27 | P.PN ---
Subjective Date of Service: 12/16/18 Subjective: No new changes Patient seen and examined at bedside. Inés, daughter and KILEY at bedside. Chart reviewed and case discussed with nursing staff. Patient confused this morning, in on acute distress though. Physical Examination - Vital Signs Temperature: 98.5 F Blood Pressure: 175/95 Pulse: 111 Respirations: 20 Pulse Ox (%): 95 - Physical Exam General: In no apparent distress, Confused Neck: Supple, JVD not distended Respiratory: Clear to auscultation bilaterally, Normal air movement Cardiovascular: Regular rate/rhythm, Normal S1 S2 Musculoskeletal: No tenderness Assessment And Plan - Plan An 88-year-old male with Acute metabolic encephalopathy, likely related to urinary tract infection. Head CT scan is negative. No mass or bleeding seen. No acute cerebrovascular accident identified on CT scan. Acute cystitis with hematuria, likely secondary to multi-drug resistant bacteria with failed outpatient treatment. The patient was on nitrofurantoin for 1 week and different set of antibiotics prior to that. The patient does have urinary retention and currently with Huerta catheter placed by Urology. Dr. Eagle consulted, recommendations appreciated. History of bladder cancer status post surgery. History of colon cancer, status post colostomy bag. Uncontrolled blood pressure. The patient had a previous history of hypertension , however was taken off all of his medications, not well controlled. We will start on p.r.n. medications. Mesothelioma. Normocytic normochromic anemia, likely anemia of chronic disease. Deep vein thrombosis prophylaxis with Lovenox. Disposition: Inés (daughter and MPOA) not wanting any invasive measures. Will discuss further goals of care with KILEY.
[2018-12-16] MEDS: RISPERIDONE 1 MG TABLET PO SCH (20:27)
[2018-12-16] MEDS: TEMAZEPAM 15 MG CAP PO ONE ×2 (21:31→22:44)
[2018-12-17 06:59] LABS: Potassium 3.6 mmol/L (3.5-5.1)
[2018-12-17] MEDS: MEMANTINE HCL 10 MG TABLET PO SCH ×3 (09:00→21:25)
[2018-12-17] MEDS: NA CHLORIDE 0.9% 1,000 ML IV SCH ×2 (09:41→22:51)
[2018-12-17] MEDS: Meropenem 1,000 MG in NA CHLORIDE 0.9% 100 ML IV SCH ×2 (09:41→21:26)
[2018-12-17] MEDS: ENOXAPARIN 40 MG/0.4 ML SQ SCH (12:04)
[2018-12-17] MEDS ORDERED: POTASSIUM 25 MEQ EFFERV TAB PO ONE (12:06)
--- NOTE | 2018-12-17 15:08 | P.PN ---
Subjective Date of Service: 12/17/18 Subjective: Improving Patient seen and examined at bedside. Inés, daughter and KILEY at bedside. Chart reviewed and case discussed with nursing staff. Patient confused this morning, in no acute distress though. Daughter states patient much more alert today, ate breakfast and lunch really well. Working with PT. Still has intermittent agitation though. Review of Systems 10-point ROS is otherwise unremarkable Physical Examination - Vital Signs Temperature: 96.9 F Blood Pressure: 160/77 Pulse: 105 Respirations: 19 Pulse Ox (%): 96 - Physical Exam General: In no apparent distress, Confused Neck: Supple, JVD not distended Respiratory: Clear to auscultation bilaterally, Normal air movement Cardiovascular: Regular rate/rhythm, Normal S1 S2 Gastrointestinal: Normal bowel sounds, No tenderness - Studies Microbiology Data (last 24 hrs): 12/15/18 10:15 Clean Catch Urine Holton Count - Final BETWEEN 10,000 & 100,000 CFU/ML Assessment And Plan - Plan An 88-year-old male with Acute metabolic encephalopathy, likely related to urinary tract infection. Improving Head CT scan is negative. No mass or bleeding seen. No acute cerebrovascular accident identified on CT scan. Acute cystitis with hematuria, likely secondary to multi-drug resistant bacteria with failed outpatient treatment. The patient was on nitrofurantoin for 1 week and different set of antibiotics prior to that. The patient does have urinary retention and currently with Huerta catheter placed by Urology. Dr. Eagle consulted, recommendations appreciated. Continue meropenem at this time. History of bladder cancer status post surgery. History of colon cancer, status post colostomy bag. Uncontrolled blood pressure. The patient had a previous history of hypertension , however was taken off all of his medications, not well controlled. We will start on p.r.n. medications. Mesothelioma. Normocytic normochromic anemia, likely anemia of chronic disease. Deep vein thrombosis prophylaxis with Lovenox. Disposition: Inés (daughter and MPOA) not wanting any invasive measures.She has decided that she would like ot do Hospice and has chosen [facility] hospice compamny. SW consulted for further help in this.
[2018-12-17] MEDS ORDERED: HYDRALAZINE HCL 20 MG/ML VIAL IV ONE (17:33)
[2018-12-17] MEDS: RISPERIDONE 1 MG TABLET PO SCH (21:25)
[2018-12-18] MEDS ORDERED: LORazepam 2 MG/ML VIAL IV ONE ×3 (00:30→22:56)
[2018-12-18] MEDS: ENOXAPARIN 40 MG/0.4 ML SQ SCH (08:55)
[2018-12-18] MEDS: Meropenem 1,000 MG in NA CHLORIDE 0.9% 100 ML IV SCH ×2 (08:56→20:20)
[2018-12-18] MEDS: NA CHLORIDE 0.9% 1,000 ML IV SCH ×2 (08:56→20:20)
[2018-12-18 10:31] LABS: Potassium 3.5 mmol/L (3.5-5.1)
[2018-12-18] MEDS ORDERED: POTASSIUM 25 MEQ EFFERV TAB PO ONE (10:35)
[2018-12-18] MEDS: MEMANTINE HCL 10 MG TABLET PO SCH ×2 (11:07→20:19)
[2018-12-18] MEDS ORDERED: LIDOCAINE 5% OINT 30 GM TUBE TOP PRN (13:47)
--- NOTE | 2018-12-18 15:03 | P.PN ---
Subjective Date of Service: 12/18/18 Subjective: No new changes Patient seen and examined at bedside. Inés, daughter and KILEY at bedside. Chart reviewed and case discussed with nursing staff. Patient more alert this morning, in no acute distress. Did have agitation overnight. Review of Systems 10-point ROS is otherwise unremarkable Physical Examination - Vital Signs Temperature: 97.7 F Blood Pressure: 154/91 Pulse: 100 Respirations: 20 Pulse Ox (%): 99 - Physical Exam General: Alert, In no apparent distress, Oriented x2 Respiratory: Clear to auscultation bilaterally, Normal air movement Cardiovascular: Regular rate/rhythm, Normal S1 S2 Gastrointestinal: Normal bowel sounds, No tenderness, Other (colostomy bag in place) - Studies Microbiology Data (last 24 hrs): 12/15/18 10:15 Clean Catch Urine Ponce Count - Final BETWEEN 10,000 & 100,000 CFU/ML 12/15/18 10:15 Clean Catch Urine - Final MIXED ÁNGEL. Assessment And Plan - Plan An 88-year-old male with Acute metabolic encephalopathy, likely related to urinary tract infection. Improving Head CT scan is negative. No mass or bleeding seen. No acute cerebrovascular accident identified on CT scan. Acute cystitis with hematuria, likely secondary to multi-drug resistant bacteria with failed outpatient treatment. The patient was on nitrofurantoin for 1 week and different set of antibiotics prior to that. The patient does have urinary retention and currently with Huerta catheter placed by Urology. Dr. Eagle consulted, recommendations appreciated. Continue meropenem at this time. History of bladder cancer status post surgery. History of colon cancer, status post colostomy bag. Uncontrolled blood pressure. The patient had a previous history of hypertension , however was taken off all of his medications, not well controlled. We will start on p.r.n. medications. Mesothelioma. Normocytic normochromic anemia, likely anemia of chronic disease. Deep vein thrombosis prophylaxis with Lovenox. Disposition: Inés (daughter and KILEY) not wanting any invasive measures.She has decided that she would like to do Hospice and has chosen [facility] MARITZA consulted for further help in this. Will discuss with daughter regarding IV antibiotics. Anticipate discharge in the next 24-48 hrs.
--- NOTE | 2018-12-18 15:31 | PN ---
Subjective: Vy has a colon cancer invading the bladder, he is on hospice now. Hopefully will be discharged soon. We will continue his Huerta catheter out, he is not draining into his diaper. We will continue to keep patient comfortable. Status post acute metabolic encephalopathy, status post multidrug-resistant bacteria, status post uncontrolled blood pressure. Inés, his daughter has [facility] power of technical sales representative and will be making decisions for him. The patient is going to [facility] hospice. RITO/FARHANA Voice ID: [id number] Report ID: [id number]
[2018-12-18] MEDS: RISPERIDONE 1 MG TABLET PO SCH (20:19)
[2018-12-19] MEDS: NA CHLORIDE 0.9% 1,000 ML IV SCH (01:31)
[2018-12-19 06:13] LABS: Magnesium 2.1 mg/dL (1.8-2.4); Potassium 3.6 mmol/L (3.5-5.1)
[2018-12-19] MEDS ORDERED: AMLODIPINE 10 MG TAB PO SCH (09:00)
[2018-12-19] MEDS: Meropenem 1,000 MG in NA CHLORIDE 0.9% 100 ML IV SCH (09:15)
[2018-12-19] MEDS: MEMANTINE HCL 10 MG TABLET PO SCH (09:16)
[2018-12-19] MEDS: ENOXAPARIN 40 MG/0.4 ML SQ SCH (09:17)
[2018-12-19] MEDS ORDERED: POTASSIUM 25 MEQ EFFERV TAB PO ONE (09:18)
[2018-12-19 11:36] VITALS: O2SAT 96
[2018-12-19 12:51] VITALS: BP 153/95; TEMP 97.6
--- NOTE | 2018-12-19 14:05 | P.DS ---
Admission Date: 12/15/18 Discharge Date: 12/19/18 Disposition: HOSPICE-HOME Discharge Condition: FAIR Consultations: Dr. Eagle, Urologist Brief History of Present Illness: The patient is an 88-year-old male with past medical history of bladder cancer status post resection along with prostate cancer and colon cancer, comes in with failed outpatient treatment for UTI. The patient has been in his usual state of health and is mostly alert and oriented, ambulates well, however for the past week has been on antibiotics, on nitrofurantoin, and has not been better. The patient has become more confused. Does have a Caputo catheter in place due to urinary obstruction by Dr. Eagle one week ago. The patient's symptoms are constant, moderate, progressively worsening. No significant fever or chills. The patient was brought into the ER by the family. In the ER, his workup revealed white count of 10,000 with neutrophilia. Procalcitonin and lactate were negative. This is likely due to the fact that he has been on antibiotics for over a week. His UA was positive with 3+ leukocyte esterase, greater than 50 wbc, 20-50 bacteria. Cultures were obtained. The patient was given a dose of Rocephin and 1 L normal saline. The patient's blood pressure upon arrival was severely elevated in the 200s over 100s. Therefore, he was given Vasotec, which improved his blood pressure. The patient was then referred for admission. When seen in the ER, he was awake and alert, confused. Hospital Course: Patient was admitted for acute metabolic encephalopathy and UTI. IV antibiotics was started with meropenem and Dr. Eagle, Urology was consulted. Patient may have had a MDR bacteria with failed outpatient therapy. He has a history of colon cancer and bladder cancer that is now invasive into the bladder wall. He has urinary retention secondary to that and a caputo that was placed by urology. MPOA stated that she did not want any invasive interventions and wanted only comfort care for the patient who has a poor overall prognosis. [facility] Hospice was then contacted. Per family, they wanted to go home today but have hospice equipment delivered tomorrow. Patient was then discharged home on hospice. Vital Signs/Physical Exam: Temp Pulse Resp BP Pulse Ox 97.6 F 74 20 153/95 H 95 12/19/18 12:00 12/19/18 12:00 12/19/18 12:00 12/19/18 12:00 12/19/18 12:00 General: In no apparent distress, Confused HEENT: Atraumatic, PERRLA, EOMI Neck: Supple, JVD not distended Respiratory: Clear to auscultation bilaterally, Normal air movement Cardiovascular: Regular rate/rhythm, Normal S1 S2 Gastrointestinal: Normal bowel sounds, No tenderness Musculoskeletal: No tenderness Integumentary: No rashes Neurological: Normal speech, Normal tone, Normal affect Lymphatics: No axilla or inguinal lymphadenopathy Laboratory Data at Discharge: WBC 9.1 K/uL (4.3-10.9) 12/16/18 03:47 Hgb 12.1 g/dL (13.6-17.9) L 12/16/18 03:47 Hct 36.2 % (39.6-49.0) L 12/16/18 03:47 Plt Count 353 K/uL (152-406) 12/16/18 03:47 PT 13.0 SECONDS (9.5-12.5) H 12/15/18 10:30 INR 1.11 12/15/18 10:30 Sodium 141 mmol/L (136-145) 12/19/18 05:45 Potassium 3.6 mmol/L (3.5-5.1) 12/19/18 05:45 BUN 13 mg/dL (7-18) 12/19/18 05:45 Creatinine 0.88 mg/dL (0.55-1.3) 12/19/18 05:45 Glucose 95 mg/dL (74-106) 12/19/18 05:45 Magnesium 2.1 mg/dL (1.8-2.4) 12/19/18 05:45 Total Bilirubin 0.7 mg/dL (0.2-1.0) 12/16/18 03:47 AST 13 U/L (15-37) L 12/16/18 03:47 ALT 13 U/L (12-78) 12/16/18 03:47 Alkaline Phosphatase 119 U/L (45-117) H 12/16/18 03:47 Lipase 96 U/L (73-393) 12/15/18 10:30 Home Medications: Iron 65 mg PO DAILY 12/15/18 Lactose-Reduced Food [Protein Nutritional Shake] 1 bot PO DAILY 12/15/18 Loratadine [Claritin*] 10 mg PO BEDTIME 12/15/18 Memantine HCl [Namenda] 5 mg PO BID 12/15/18 Montelukast [Singulair*] 10 mg PO BEDTIME 12/15/18 Mv-Mn/FA/Lycopene/Lut/Hb#178 [Carlos A Multi For Men Tablet] 1 tab PO DAILY Polyethylene Glycol 3350 [Miralax] 8 gm PO DAILY 12/15/18 Risperidone [Risperdal] 1.5 mg PO BEDTIME 12/15/18 Amlodipine [Norvasc*] 10 mg PO DAILY #30 tab 12/19/18 Nitrofuran Macro [Macrobid] 100 mg PO BID #10 cap 12/19/18 New Medications: Amlodipine [Norvasc*] 10 mg PO DAILY #30 tab Nitrofuran Macro [Macrobid] 100 mg PO BID #10 cap Diet: Regular Activity: Ad argenis Time spent managing pt's care (in minutes): 55
[2018-12-19] MEDS ORDERED: HYDROMORPHONE HCL 1 MG/ML INJ ONE (14:55)
== END 2018-12-19 13:08 | disposition hospice, home (50) | DRG 698 ==
LOC: ER 09:38 → ERHOLD 13:58 → 4TH 17:15
PROVIDERS: ADMIT Family Medicine; ATTEND Family Medicine
DX: T83.511A Infection and inflammatory reaction due to indwelling urethral catheter, initial encounter (principal); G93.41 Metabolic encephalopathy; N30.01 Acute cystitis with hematuria; I10 Essential (primary) hypertension; C45.9 Mesothelioma, unspecified; D64.9 Anemia, unspecified; R01.1 Cardiac murmur, unspecified; Z85.51 Personal history of malignant neoplasm of bladder; Z85.46 Personal history of malignant neoplasm of prostate; Z85.038 Personal history of other malignant neoplasm of large intestine; Z88.0 Allergy status to penicillin; Z66 Do not resuscitate; Z93.3 Colostomy status
CPT/HCPCS: 36415; 70450; 71045; 80048; 80053; 80076; 81003; 81015; 82550; 82962; 83605; 83690; 83735; 84145; 84484; 85025; 85610; 87040; 87086; 87088; 93005; 94760; 96361; 96365; 96366; 96375; 97116; 97162; 97166; 97530; 99285; J0360; J0696; J1170; J1650; J7030